=== PATIENT | female | born 1975 | race African-American/Black ===

== ENCOUNTER → 2018-01-16 10:44 | Outpatient (CLI) | payer OTHER, SELFPAY ==
--- NOTE | 2018-01-16 | DI.CT.S_ITS ---
PROCEDURE: CT SINUS SCREEN WO CON INDICATIONS: CHRONIC SINUSITIS TECHNIQUE: Noncontrast 3.0 mm axial images acquired from the frontal sinuses to the mid-sella, with coronal and sagittal reformats. For radiation dose reduction, the following was used: automated exposure control, adjustment of mA and/or kV according to patient size. COMPARISON: None. FINDINGS: Image quality: Excellent. The paranasal sinuses are normally aerated. No mucosal thickening identified in the paranasal sinuses. No air-fluid levels identified in the paranasal sinuses. The osteomeatal units are patent bilaterally. No bony thickening, bony remodeling or osseous erosive changes. Nasal septum is deviated to the right. No rishabh bullosa or paradoxical turbinates. 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 No frontal recess cells identified. Type II cribriform plate is noted. No variance in the ethmoid roof anatomy. The anterior ethmoid artery notches are protected bilaterally. The sphenoid pneumatization pattern is sellar incomplete. The sphenoid intersinus septum is midline. Type I optic canals noted. IMPRESSION: 1. No mucosal thickening or air-fluid levels. 2. Variant paranasal sinus anatomy as described above. Dictated by: Mary Chaidez MD, PhD on 01/16/2018 at 12:21 Approved by: Mary Chaidez MD, PhD on 01/16/2018 at 12:25
== END ==
PROVIDERS: Family Provider Family Medicine; PCP Family Medicine; Visit Provider Otolaryngology
DX: J32.9 Chronic sinusitis, unspecified (principal)
CPT/HCPCS: 70486

== ENCOUNTER → 2019-07-16 11:26 | Outpatient (CLI) | payer OTHER, SELFPAY ==
--- NOTE | 2019-07-16 | DI.RAD.S_ITS ---
PROCEDURE: XR ANKLE RT MIN 3V INDICATIONS: right ankle pain TECHNIQUE: 3 views of the ankle were acquired. COMPARISON: None. FINDINGS: Bones: No fractures or dislocations. Ankle mortise is normally aligned. No suspicious bony lesions. Soft tissues: No tibiotalar joint effusion. Achilles tendon appears normal. IMPRESSION: Normal for age, source of current persistent pain symptoms is not seen. Dictated by: Nikko Bowen M.D. on 07/16/2019 at 12:36 Approved by: Nikko Bowen M.D. on 07/16/2019 at 12:36
== END ==
PROVIDERS: PCP Family Medicine; Visit Provider Family Medicine
DX: M25.571 Pain in right ankle and joints of right foot (principal)
CPT/HCPCS: 73610

== ENCOUNTER → 2020-04-23 03:49 | Outpatient (CLI) | payer OTHER, SELFPAY | PROVIDERS: Referring Provider Internal Medicine; Visit Provider Internal Medicine | DX: Z23 Encounter for immunization (principal) | CPT/HCPCS: 90471; 90686 ==

== ENCOUNTER → 2020-06-30 12:00 | Outpatient (CLI) | payer OTHER, SELFPAY ==
[2020-06-30] MEDS: COVID-19 VACC(MODERNA-1)/PF 100 MCG/0.5 ML VIAL IM (12:06)
== END ==
PROVIDERS: Visit Provider Internal Medicine
DX: Z23 Encounter for immunization (principal)
CPT/HCPCS: 0011A; 91301

== ENCOUNTER → 2020-07-27 12:33 | Outpatient (CLI) | payer OTHER, SELFPAY ==
[2020-07-27] MEDS: COVID-19 VACC #2, MRNA(MOD) 100 MCG/0.5 ML VIAL IM (12:37)
== END ==
PROVIDERS: Visit Provider Internal Medicine
DX: Z23 Encounter for immunization (principal)
CPT/HCPCS: 0012A; 91301

== ENCOUNTER → 2022-04-03 14:10 | Outpatient (CLI) | payer OTHER, SELFPAY ==
--- NOTE | 2022-04-03 14:10 | DI.US.S_ITS ---
PROCEDURE: US PELVIC COMPLETE INDICATIONS: Heavy periods TECHNIQUE: Real-time scanning was performed of the pelvic organs, with image documentation. Additional endovaginal scanning was necessary due to incomplete visualization of the adnexal and endometrial structures by transabdominal scanning. COMPARISON: None. FINDINGS: Uterus: Uterus is anteverted and enlarged in size at 12.4 x 9 x 8.4 cm. The myometrium is heterogeneous. 6.9 x 9.9 x 8.4 cm intramural fibroid is seen in posterior myometrium near midline. The endometrium measures 6.4 mm combined thickness. No gross endometrial mass or fluid. Ovaries: The right ovary measures 1.8 x 3.0 x 1.4 cm, with a calculated ovarian volume of 3.9 cc. The left ovary is not visualized on this study. The right ovary has a normal sonographic appearance. Less than 12 follicles can be seen in right ovary. No adnexal masses are seen. Other: No pathologic free abdominal or pelvic fluid. IMPRESSION: 1. Enlarged uterus with bulky uterine fibroid as above. No gross endometrial mass or fluid. 2. Normal appearing right ovary. Left ovary is not visualized. No adnexal mass. We strive to produce accurate, complete, and clear reports of imaging services. To assist us in improving patient care, this report was composed using standard report templates and voice recognition software. Therefore, it may contain abnormal punctuation, insertions and/or omissions. Occasional wrong-word or sound-alike substitutions may occur. Though we review the report and make efforts to correct it, we do recommend that the report be read carefully in proper context to recognize any text inaccuracies. Dictated by: Wilson Suarez M.D. on 04/03/2022 at 16:41 Approved by: Wilson Suarez M.D. on 04/03/2022 at 16:45
== END ==
PROVIDERS: PCP Family Medicine; Referring Provider Obstetrics & Gynecology; Visit Provider Obstetrics & Gynecology
DX: N92.0 Excessive and frequent menstruation with regular cycle (principal); D25.1 Intramural leiomyoma of uterus; N85.2 Hypertrophy of uterus
CPT/HCPCS: 76830; 76856

== ENCOUNTER 2022-08-12 11:15 | Inpatient (IN) | payer OTHER, SELFPAY ==
[2022-08-08 10:57] VITALS: BMI 40.7
[2022-08-11] VITALS (13 sets, daily range): BP systolic 99–148; BP diastolic 63–91; PULSE 81–102; RESP 16–23; TEMP 36.1–36.9; O2SAT 95–99; BMI 40.7
--- NOTE | 2022-08-11 | PATH_ITS ---
[facility] Accession Number: [id number] No. of containers..01 Tissue . 01 Material submitted: . uterus - UTERUS, BILATERAL FALLOPIAN TUBES . 01 Diagnosis: Uterus and Fallopian Tubes, Supracervical Hysterectomy and Bilateral Salpingectomy: Endometrium: Early secretory. Myometrium: Multiple leiomyomata. Fallopian tubes: Benign paratubal cyst. V 08/17/2022 1624 Local . 01 Electronically signed: . Juliette Owens MD, Pathologist NPI- [id number] . 01 Gross description: . The specimen is received in formalin, labeled with the patient's name, , and uterus, bilateral fallopian tubes, and consists of a significantly fragmented uterus (448 g and aggregating to 17.5 x 16.9 x 7.8 cm), with two detached, fimbriated, unoriented fallopian tubes (6.8 x 0.7 cm and 3.3 x 0.6 cm, respectively), with no cervix or additional adnexa identified. The presumed endometrium is stein and velvety and averages 0.1 cm thick. The serosa is pink-stein and wrinkled with no hemorrhage or adhesion grossly identified. The myometrium is pink-stein and trabecular with multiple white, whorled, fragmented nodules with the largest intact nodule measuring up to 2.5 cm in greatest dimension. No hemorrhage or necrosis is identified. The longer fallopian tube has congested smooth serosa with no cystic structures identified. Sectioning reveals an unremarkable stellate lumen. The shorter fallopian tube has congested smooth serosa with a cystic structure measuring 0.7 cm in greatest dimension, filled with clear serous fluid. Sectioning reveals an unremarkable stellate lumen. [employer] sections are submitted as follows: A1-A2: [employer] endometrium. A3: Serosa. A4-A6: [employer]visor nodules. A7: Longer fallopian tube to include one-half of bisected fimbriae and cross sections. A8: [place] fallopian tube to include one-half of bisected fimbriae and cross sections. ([id number]) /FRR 08/12/2022 0919 Local . 01 Pathologist provided ICD-10: D25.1, N92.0 . 01 CPT . 286642 Specimen Comment: A courtesy copy of this report has been sent to [phone] Performed at: 01 [facility] [address] [place] [address], [place], [place] [id number] MD Javy Vásquez MD Phone: [phone]
[2022-08-11] MEDS: LACTATED RINGERS 1,000 ML 42 ML IV ×2 (09:45→11:06)
[2022-08-11 09:49] LABS: COVID19 -Nasal RAPID Negative (Negative)
[2022-08-11] MEDS: ACETAMINOPHEN IV 1,000 MG/100 ML VIAL 400 MG IV (09:51)
--- NOTE | 2022-08-11 10:08 | PM.PREOP ---
Pre-operative Note Interval Note History & Physical reviewed/Exam performed by Physician: Yes Changes to H&P: No H&P completed within 30 days and has changed as indicated here:: 07/26/22
[2022-08-11] MEDS: CEFAZOLIN 2 GM/100 ML PREMIX 100 ML IV (10:23)
--- NOTE | 2022-08-11 11:02 | SUR.OPER ---
Lithotomy on padded OR bed. [place] Pad Positioner under torso. Head on pillow, arms padded and tucked at sides. Legs secured in padded yellow fins stirrups. Pt positioned per direction and supervision of Dr Lujan.
[2022-08-11] MEDS: BUPIVACAINE 0.5% W/ EPI (PF) 30 ML VIAL INJ (11:07)
[2022-08-11] MEDS: ROPIVACAINE 0.2% PF 2 MG/ML 20ML AMP 20 ML INJ (11:08)
--- NOTE | 2022-08-11 13:46 | SUR.OPER ---
2\17\23 1230. Bloody urine found in hogan catheter at end of procedure. Dr Lujan notified. Pt re-intubated with LMA. Pt positioned in lithotomy with pink pad and yellowfins, bilateral arms padded and tucked at sides. Pt perineum prepped with hibiclens. Cystoscopy with Dr Leon started at 1302. Cystoscopy ended at 1319. Pt abdomen and perineum prepped with betadine. Cystotomy with Dr Lujan and Dr Leon started at 1338.
[2022-08-11] MEDS: METHYLENE BLUE 50 MG/10 ML VIAL 15 MG INJ (15:28)
--- NOTE | 2022-08-11 15:56 | PM.CN ---
History of Present Illness Consult details Date Patient Seen: 08/11/22 Time Patient Seen: 12:20 Chief complaint: OPB Reason for consult: Suspicion of bladder injury during supracervical laparoscopic hysterectomy Requesting provider: Aletha Lujan Narrative: This 46-year-old female had undergone a supracervical hysterectomy by Dr. Lujan. During the procedure there was no suspected incident or complication. However at the end of the procedure there was noted in the Ochoa bag blood and evidence of CO2 (the Ochoa bag was ?puffed up? (which raise suspicion for intraoperative bladder injury. I was called and asked to performed cystoscopy to evaluate. Cystoscopy was done will be dictated under separate cover. Meds Home Medications and Allergies Home Medications Medication Instructions Recorded Confirmed Type lorazepam 1 mg tablet (Ativan) 1 mg PO PRN PRN Anxiety ##0 07/14/16 08/08/22 History sertraline 50 mg tablet (Zoloft) 50 mg PO DAILY 04/10/22 08/08/22 History tacrolimus 0.1 % topical ointment 1 applic topical BID PRN As 04/10/22 08/08/22 History directed Allergies Allergy/AdvReac Type Severity Reaction Status Date / Time latex [LATEX] Allergy Unknown Verified 08/10/22 13:50 Penicillins Allergy Anaphylaxis Verified 08/11/22 09:08 Biologics Allergy Rash Uncoded 08/11/22 09:08 Exam Vital Signs (past 8 hours): - 08/11/22 09:26 Temperature 97.0 F L Pulse Rate 94 H Respiratory Rate 18 Blood Pressure 136/81 Pulse Oximetry 99 Oxygen Delivery Method Room Air Oxygen Delivery Method Room Air Narrative Exam Narrative: Patient is resting on the surgical table. And appears to be in no distress the Ochoa bag is inspected and did indeed have bloody urine. The urine in the tube however appeared to be clearing. As will be noted in the flexible cystoscopy note there did appear to be a perforation anteriorly consistent with laparoscopic trocar. This was on the anterior right bladder in proximity to the dome posteriorly on the left there was another injury that did not appear to be through and through and would be in position that would leave it extraperitoneal. Objective Labs Labs: Laboratory Results - last 24 hr 08/11/22 09:20 SARS-CoV-2 (PCR) Negative [facility] Medical History (Updated 08/11/22 @ 16:05 by Jaydon Leon MD) Bladder perforation, intraoperative Heavy menstrual period (~2016) History of urinary incontinence Insomnia, unspecified (~2002) Irregular menstrual cycle (~2016) Obstructive sleep apnea of adult (~03/2018) Painful menstrual periods (~2016) Rheumatoid arthritis Sjogrens syndrome Snoring (~2002) Social History marital status: details: brian Palafox, lives in [place] household members: spouse and family lives independently: Yes caregiver/support person: No housing: apartment occupational status: unemployed Tobacco & Substance Use Smoking Status: Former smoker alcohol intake: current substance use type: does not use Assessment & Plan Assessment and plan (1) Bladder perforation, intraoperative: Status: Acute Plan Assessment and plan: Patient with apparent traumatic bladder perforation appearing to be consistent with trocar. Also another bladder injury posteriorly that appears to be extraperitoneal. No other abnormality was noted in the bladder. Plan would be to move onto exploratory laparotomy per Dr. Lujan with any repair of the cystotomy done by myself. Time Spent With Patient Time with patient: less than 30 minutes Critical Care time: I spent a total of [] minutes of critical care time on this patient's care today; this time is exclusive of procedural time.
--- NOTE | 2022-08-11 16:06 | P.OP_ITS ---
Operative Date/Time/Diagnoses Date of procedure: 08/11/22 Time of procedure: 13:00 Pre-op diagnosis: Traumatic bladder injury Post-op diagnosis: same Procedure & Clinicians Procedure: Cystoscopy and open repair of traumatic bladder injury Same procedure as scheduled: No Indications: This 46-year-old female had undergone a laparoscopic supracervical hysterectomy. Was noted to have blood and evidence of gas in her Ochoa bag. I was asked to investigate via cystoscopy. At cystoscopy the bladder injury was noted and it was decided that exploratory laparotomy and then any repair of the bladder would be performed. The exploratory laparotomy will be dictated by Dr. Lujan under separate cover. Surgeon: Jaydon Leon Credit Report Checker: Aletha Lujan Anesthesia Type: General Operative Notes Findings: At cystoscopy: The urethral meatus was normal the urethra was normal along its length with normal mucosa. The ureteral orifices were normal position with clear efflux. The bladder mucosa in general exhibited some mild ecchymosis but nothing that would indicate malignant changes. In the right anterior bladder there was evidence of perforation with some apparent fat that would indicate a through and through injury it appeared to be about a cm in diameter and would be consistent with perhaps a laparoscopic trocar injury. In a line traveling posteriorly on the left there was also atraumatic of injury but that did not appear to be through and through in an a space that would be extraperitoneal. No other abnormalities were noted within the bladder or at cystoscopy. Intraoperatively: With the dome of the bladder expose the bladder was filled and ready efflux of saline was noted. The perforation was identified. This will be repaired as noted below the bladder after this repair was then filled with saline there appeared to be no leak the bladder was drained and then the bladder was filled with 300 cc of methylene blue containing fluid. There was no evidence of leak of the methylene blue containing fluid. There was no leak from the repair with either of the fillings. Specimen(s): none sent Procedure in detail: Procedure in detail: With the patient asleep and Dr. Lujan with my assistance having open the patient and performed exploratory laparotomy Bookwalter retractor was in place in the bladder was exposed. Ochoa catheter was then put in place with the vagina having been prepped. The bladder was then filled with sterile saline and in the dome on the right the leak was identified. The edges of the mucosa them were grasped with an Allis clamp and repair performed in the following fashion. The mucosa was then reapproximated with a running 3-0 chromic. The detrusor was then approximated with a running 2-0 Vicryl and the overlying fat and peritoneum were imbricated over this closure with a 2-0 running Vicryl. Thus the bladder was closed in 3 layers. The bladder was then filled with 300 cc of sterile water and the that repair was watertight. The bladder was then drained and to investigate for any further leak and to demonstrate again no leak at the repair the bladder was filled with 300 cc plus of methylene blue containing saline. There was no leak and no evidence of blue fluid in the peritoneum the surgical field. This is been suspected was conf irmed that the posterior injury in the bladder was extraperitoneal. At this point the peritoneum and perivesical fat were reapproximated over the detrusor with a running 2-0 Vicryl. The patient then went on to closure by Dr. Lujan. The exploratory laparotomy and other portions of the surgery will be dictated by Dr. Lujan. Recommendations for continuing Ochoa catheter cystogram at approximately 4 weeks and antibiotics were given. I Will be available should there be other urologic needs. There were no complications during this portion of the procedure. Complications: none Post-operative Plan for aftercare: Per Dr. Lujan. Recommend continued Ochoa catheter drainage, cystogram at approximately 4 weeks with follow-up in my office.
--- NOTE | 2022-08-11 16:32 | SUR.OPER ---
Initial procedure with Dr Lujan finished at 1228. Bloody urine in hogan catheter observed prior to leaving the operating room. Dr Lujan notified. Pt re positioned into lithotomy with bilateral arms padded and tucked. Pt perineum prepped with hibiclens. Cystoscopy with Dr Leon started at 1302. Cystoscopy finished at 1319. Pt abdomen and perineum prepped with betadine. Exploratory laparotomy and cystotomy repair started at 1338.
--- NOTE | 2022-08-11 16:47 | P.OP_ITS ---
Operative Date/Time/Diagnoses Date of procedure: 08/11/22 Time of procedure: 16:47 Pre-op diagnosis: Menorrhagia Enlarged fibroid uterus Post-op diagnosis: same Procedure & Clinicians Procedure: Procedures Operation Date: 08/11/22 10:15 Actual Procedure Side Surgeon p Laparoscopic Supracervical Hysterectomy w/ bilateral salpingectomy Bilateral Aletha Lujan MD s Cystoscopy, exploratory laparotomy, closure of traumatic cystotomy Not Applicable Jaydon Leon MD Indications: Menorrhagia Fibroid uterus Inadvertent cystotomy Surgeon: Aletha Lujan Public Address Technician: Erick Desai Anesthesia Type: General and Local Operative Notes Findings: 12 week size multifibroid uterus Normal ovaries Normal tubes Cystotomy at dome of the bladder Normal gallbladder and liver Normal appendix Small cystotomy in the dome of the bladder Closure Type: primary Specimen(s): left tube, right tube and uterus Applied: catheter (Silicone, to continuous drainage) Estimated blood loss (mL): 50 Blood products transfused: none Procedure in detail: The patient was taken to the operating room where she was placed in the dorsal supine position. After adequate general endotracheal anesthesia was achieved, s he was placed in the dorsal lithotomy position, and prepped and draped in the usual sterile fashion. A time-out was performed. A bivalve speculum was placed into the vagina and the anterior lip of the cervix was grasped with a single- tooth tenaculum. The cervical os was sequentially dilated until the Zumi uterine manipulator could pass easily into the endometrial cavity. The single- tooth tenaculum was removed from the anterior lip of the cervix. The bivalve speculum was removed from the vagina. Attention was then turned to the abdomen where 6 cc of 0.5% Marcaine with epinephrine were injected in the umbilical fold. A 5 mm incision was made. A long Veress needle was placed into the peritoneal cavity, and its placement confirmed by aspiration and drop test. The abdominal cavity was insufflated with 4 L of CO2. The Veress needle was removed, and a long 5 mm trocar was placed without difficulty. Two other 5 mm incisions were made 4 cm lateral to the midline at the level of the umbilicus after 6 cc of 0.5% Marcaine with epinephrine were injected. Two long 5 mm trocars were placed under direct visualization. A probe was used to move the bowel out of the way. The uterus was examined and was found to be 12 week size with fibroids both intramural and subserosal. The ovaries were normal. The tubes were normal. The liver and gallbladder were examined and were found to be normal. The appendix was normal. The right tube was grasped with an atraumatic grasper. Using the power seal, the mesosalpinx on the right side was cauterized and cut all the way down to the cornua of the uterus. The cornua of the uterus was then grasped with an atraumatic grasper. The utero-ovarian vessels were cauterized and cut. The round ligament and broad ligament were cauterized and cut. The bladder flap was created using the power seal mcfp across with cautery and cut. All of this was repeated on the patient's left side. The Zumi uterine manipulator was removed from the uterus. A moistened sponge stick was placed into the vagina. The Tamika loop was placed at the junction of the uterus and cervix, 2 cm above the uterosacral ligaments. The uterus was amputated from the cervix. There was minimal bleeding noted from the left edge of the cervix and this was cauterized with the spoon cautery. The endocervical canal was extensively cauterized with the spoon cautery. The pelvis was copiously irrigated with warm normal saline. There was no bleeding noted. 6 cc of 0.5% Marcaine with epinephrine were injected 2 cm above the pubic symphysis. A 2 cm incision was made. The 12 mm trocar was placed under direct visualization. The large endobag was placed through the suprapubic trocar and the uterus and tubes were placed into the bag. The trocar was removed and the edges of the bag were brought up through the skin. An Hernando was placed into the bag. Morcellated in approximately 35 pieces. This was sent off to pathology. The endobag and Hernando were removed from the peritoneal cavity. The fascia on the suprapubic incision was closed with 0 Vicryl in a running fashion. The abdomen was re- insufflated and the pelvis was examined. There was no bleeding noted. The pelvis was irrigated with warm normal saline. The instruments were removed from the abdomen. The CO2 was allowed to escape. Two simple interrupted sutures with 3-0 Vicryl were placed to reapproximate the subcutaneous layer. The skin was closed on all of the incisions with 4-0 Monocryl in a subcuticular fashion. Steri-Strips and Allevyn dressings were placed. The moistened sponge stick was removed from the vagina. Sponge, lap, and instrument counts were correct x2. The patient tolerated the procedure well. Prior to the patient leaving the operating room blood was noted in the Ochoa bag and some air. Urology was consulted and the cystoscopy is dictated as a separate procedure. A decision was made to proceed with an exploratory laparotomy and repair of an inadvertent cystotomy. The patient was placed again in the dorsal lithotomy position and prepped and draped in the usual sterile fashion. The stitches were removed from the suprapubic incision both on the skin and subcutaneous layer. The incision was extended to 8 cm and carried through to the underlying layer of fascia. The fascial incision was extended bilaterally. The superior aspect of the fascial incision was grasped with the Jazz clamps, elevated, and the underlying rectus muscles dissected off sharply and bluntly. In a similar fashion the lower edges of the fascia were grasped with the Jazz clamps, elevated, and the underlying rectus muscles dissected off sharply and bluntly. The rectus muscles were in the midline. The peritoneum was identified, grasped between 2 hemostats, and entered sharply with the Metzenbaum scissors. This incision was extended bluntly. The Bookwalter retractor system was placed and the bowel packed away with moist lap sponges and a retractor. There was a small area near 1 of the epiploic appendices that had some oozing. General surgery was consulted and felt that there was no enterotomy. A superficial closure was done with silk sutures and this is dictated as a separate procedure. Once good visualization of the bladder was obtained. There was found to be a small cystotomy in the dome of the bladder. The closure of the cystotomy is dictated by Dr. Leon as a separate procedure. Once adequate closure of the cystotomy was visualized. The pelvis and bladder were examined and were found to be hemostatic. Copious irrigation was perform ed. The retractors and Bookwalter system were removed from the incision. The peritoneum was grasped with hemostats. Peritoneum was closed with 2-0 Vicryl in a running fashion. The fascia was reapproximated using 0 Vicryl in a running fashion. The subcutaneous layer was copiously irrigated with warm normal saline. There was no bleeding noted. Five simple interrupted sutures with 3-0 Vicryl were placed in the subcutaneous layer to reapproximate. The skin was closed with 4-0 Monocryl in a subcuticular fashion. Steri-Strips, Telfa, and Medipore tape were placed. Sponge, lap, and instrument counts were correct x2. The patient tolerated the procedure well and was taken to PACU in stable condition. Complications: none Post-operative Condition: stable Disposition: PACU Plan for aftercare: To Acute Care after Recovery
[2022-08-11] MEDS: OXYCODONE IR 5 MG TABLET PO (17:08)
--- NOTE | 2022-08-11 17:26 | SUR.PHASEI ---
to 218 with belongings. pt tolerated.
[2022-08-11 17:58] LABS: Add Manual Diff / Slide Review NO; Basophils Absolute Auto 0 /uL (0-100); Basophils Percent Auto 0.2 % (0-2); Eosinophils Absolute Auto 0 /uL (0-450); Hemoglobin 12.4 g/dL (12.0-16.0); Lymphocytes Absolute Auto 800 /uL (1100-4500); Lymphocytes Percent Auto 5.2 % (25-40); Mean Corpuscular HGB Conc 32.6 % (30-36); Mean Corpuscular Hemoglobin 27.6 PG (26-34); Mean Corpuscular Volume 84.7 fL (80-100); Monocytes Absolute Auto 800 /uL (0-900); Monocytes Percent Auto 5.5 % (3-14); Neutrophils Absolute Auto 12800 /uL (1500-7000); Neutrophils Percent Auto 89.1 % (50-75); Platelet Count 255 X10^3/uL (150-400); Red Blood Cell Count 4.49 X10^6/uL (4.0-5.2); Red Cell Distribution Width 16.1 % (11.6-14.8); White Blood Cell Count 14.4 X10^3/uL (4.5-11.0)
[2022-08-11] MEDS: levoFLOXacin 500 MG/100 ML PIGGYBACK 100 MG IV (18:40)
[2022-08-11] MEDS: ACETAMINOPHEN 325 MG TABLET 650 MG PO (18:40)
[2022-08-11] MEDS: OXYCODONE IR 10 MG TABLET PO (18:40)
[2022-08-11] MEDS: LACTATED RINGERS 1,000 ML 100 ML IV (18:40)
[2022-08-11] MEDS: KETOROLAC 30 MG/ML VIAL IV (20:58)
[2022-08-11] MEDS: MORPHINE 2 MG/ML INJ IV ×2 (20:59→22:39)
[2022-08-11] MEDS: metroNIDAZOLE 500 MG/100 ML PIGGYBACK 100 MG IV (21:00)
[2022-08-11] MEDS: DOCUSATE 100 MG CAPSULE 200 MG PO (22:41)
[2022-08-12] MEDS: ACETAMINOPHEN 325 MG TABLET 650 MG PO ×4 (00:59→18:41)
[2022-08-12] MEDS: MORPHINE 4 MG/ML INJ IV ×2 (01:03→13:37)
[2022-08-12 01:22] VITALS: BP 117/73; PULSE 76; RESP 18; TEMP 36.3; O2SAT 98
[2022-08-12] MEDS: LORazepam 1 MG TABLET PO (03:00)
[2022-08-12] MEDS: KETOROLAC 30 MG/ML VIAL IV ×3 (03:00→16:10)
[2022-08-12] MEDS: metroNIDAZOLE 500 MG/100 ML PIGGYBACK 100 MG IV ×3 (03:53→18:41)
[2022-08-12 04:22] VITALS: BP 114/61; PULSE 67; RESP 18; TEMP 36.1; O2SAT 98
[2022-08-12] MEDS: OXYCODONE IR 5 MG TABLET 10 MG PO ×2 (06:56→20:46)
[2022-08-12 08:00] VITALS: BP 125/72; PULSE 65; RESP 16; TEMP 36.6; O2SAT 100
[2022-08-12] MEDS: LACTATED RINGERS 1,000 ML 100 ML IV (08:48)
[2022-08-12 08:59] LABS: BUN Creatinine Ratio 14.7 (6-22); Blood Urea Nitrogen 10 mg/dL (7-17); Calcium 8.4 mg/dL (8.4-10.2); Carbon Dioxide 28 mmol/L (22-32); Chloride 98 mmol/L (98-107); Estimated Glomerular Filt Rate > 60 mL/min (>60); Glucose 99 mg/dL (70-100); HEMOLYSIS 15 (0-50); Potassium 3.9 mmol/L (3.4-5.1); Sodium 131 mmol/L (137-145)
[2022-08-12] MEDS: DOCUSATE 100 MG CAPSULE 200 MG PO ×2 (09:18→21:12)
[2022-08-12] MEDS: SERTRALINE 50 MG TABLET PO (09:18)
--- NOTE | 2022-08-12 10:59 | CM.DANOTE ---
Initial DCP Assessment Note Pt is a 46 yo female, resident of [place], POD 1 from Cystoscopy and open repair of traumatic bladder injury (during recent supracervical laparoscopic hysterectomy). Dr Le peralta today, states no needs from this CM team; anticipates patient will discharge home w/supportive spouse and family tomorrow PCP: Magdiel Ware Payer: Maegan JASSO Met w/patient and her sister Magen at bedside, introduced role. Patient denies DC needs but does ask for counseling resources. Discussed [employer] as the most up to date and robust resource for finding providers that accept patient's insurance. Patient states appreciation. No barriers identified at this time to patient's safe discharge home w/family to assist; close outpatient f/u recommended. RAY Urena Discharge Planning/Care Management CM Discharge Assessment Start: 08/12/22 10:45 Freq: Status: Active Protocol: Document 08/12/22 10:46 KELSI (Rec: 08/12/22 10:59 KELSI [id number]) Discharge Planning Assessment Assigned Branch Administrator RAY Joyce DPOA/Assigned Designee Name Javy Ley, spouse Contact Information [phone] Advance Directives? No Advance Directives on File No History Provided By Patient,Medical Record Prior Living Arrangements Apartment/Condo Household Members spouse,family Type of transporation used prior to Drives own vehicle admit Independent with ADL's Yes Is patient alert and oriented? Yes Barriers to Discharge No Comment Anticipate discharge home w/ assist from spouse and sister once medically cleared, likely Sunday08.13.22 Discharge Plan Home Transportation Arrangement Family Referrals Initiated None needed Whiteboard Updated in Patient Room with Yes name and ext. # of Branch Administrator
--- NOTE | 2022-08-12 13:06 | PM.PNPO.1 ---
Subjective Subjective Date Patient Seen: 08/12/22 Time Patient Seen: 10:15 Interval history: Postop day #1 status post laparoscopic supracervical hysterectomy and exploratory laparotomy with repair of inadvertent cystotomy. Patient did well overnight. Pain is well controlled. No nausea or vomiting. She has tolerated a diet. She did get out of bed and stand at the bedside. Went over again the details of what happened in surgery and the procedures that were performed. Urine is clear and adequate. Exam Vital Signs (past 8 hours): - 08/12/22 08:00 Temperature 97.8 F Pulse Rate 65 Respiratory Rate 16 Blood Pressure 125/72 Pulse Oximetry 100 Oxygen Flow Rate 0 Oxygen Delivery Method Room Air Oxygen Flow Rate 0 Narrative Exam Narrative: Generally: Patient is sitting up in bed, no acute distress Abdomen: Soft, appropriately tender. Incisions: Laparoscopy incisions are clean dry and intact with Allevyn dressings. The Pfannenstiel incision is clean dry and intact with Medipore tape. Extremities: SCDs in place Objective Labs 08/11/22 17:50 08/12/22 08:15 Labs: Laboratory Results - last 24 hr 08/11/22 08/12/22 17:50 08:15 WBC 14.4 H RBC 4.49 Hgb 12.4 Hct 38.0 MCV 84.7 MCH 27.6 MCHC 32.6 RDW 16.1 H Plt Count 255 Neut % (Auto) 89.1 H Lymph % (Auto) 5.2 L [place] % (Auto) 5.5 Eos % (Auto) 0.0 L Baso % (Auto) 0.2 Neut # (Auto) 38023 H Lymph # (Auto) 800 L [place] # (Auto) 800 Eos # (Auto) 0 Baso # (Auto) 0 Sodium 131 L Potassium 3.9 Chloride 98 Carbon Dioxide 28 BUN 10 Creatinine 0.68 Estimated GFR > 60 BUN/Creatinine Ratio 14.7 Glucose 99 Calcium 8.4 PENDING SALE TO [facility] Medical History (Updated 08/11/22 @ 16:05 by Jaydon Leon MD) Bladder perforation, intraoperative Heavy menstrual period (~2016) History of urinary incontinence Insomnia, unspecified (~2002) Irregular menstrual cycle (~2016) Obstructive sleep apnea of adult (~03/2018) Painful menstrual periods (~2016) Rheumatoid arthritis Sjogrens syndrome Snoring (~2002) Social History (Reviewed 02/28/19 @ 18:08 by CARLITOS Anaya marital status: details: brian Palafox, lives in [place] household members: spouse and family lives independently: Yes caregiver/support person: No housing: apartment occupational status: unemployed Smoking Status: Former smoker alcohol intake: current substance use type: does not use Assessment & Plan Post-op Postoperative Procedures: Procedures Operation Date: 08/11/22 10:15 Actual Procedure Side Surgeon p Laparoscopic Supracervical Hysterectomy w/ bilateral salpingectomy Bilateral Aletha Lujan MD s Cystoscopy, exploratory laparotomy, closure of traumatic cystotomy Not Applicable Jaydon Leon MD Postoperative day: 1 Postoperative status: doing well Postoperative plan narrative: Continue Ochoa catheter Ambulate in hallway Continue IV antibiotics Cepacol lozenges for throat soreness Abdominal binder Anticipate discharge August 13, 2022 Time Spent With Patient Time with patient: 15-24 minutes Quality VTE Deep Vein Thrombosis/Pulmonary Embolism Present on Admission: No
[2022-08-12 16:15] VITALS: BP 118/67; PULSE 75; RESP 16; TEMP 36.7; O2SAT 98
--- NOTE | 2022-08-12 16:21 | DI.US.S_ITS ---
PROCEDURE: US PERIPH VENOUS LOW EXTREM RT INDICATIONS: Rt calf swelling TECHNIQUE: Real-time imaging, as well as color and pulse Doppler interrogation, were performed of the lower extremity deep veins from the inguinal ligament to the popliteal fossa. COMPARISON: None. FINDINGS: The common femoral, femoral and popliteal veins are normally compressible, and free of intraluminal thrombus. Color and pulse Doppler demonstrate normal phasic intraluminal flow. There is normal augmentation response to distal compression maneuver. IMPRESSION: No DVT found. Source reported right calf swelling is not identified. Dictated by: Nikko Bowen M.D. on 08/12/2022 at 20:18 Approved by: Nikko Bowen M.D. on 08/12/2022 at 20:19
[2022-08-12] MEDS: levoFLOXacin 500 MG/100 ML PIGGYBACK 100 MG IV (17:32)
[2022-08-12 20:05] VITALS: BP 129/73; PULSE 89; RESP 17; TEMP 36.1; O2SAT 98
--- NOTE | 2022-08-12 20:24 | PM.OP.1 ---
Operative Date/Time/Diagnoses Date of procedure: 08/12/22 Time of procedure: 20:25
--- NOTE | 2022-08-12 20:27 | PM.CALLCOV.1 ---
Call Coverage Note Note Date of Patient Contact: 08/11/22 Narrative of Care Provided: Patient is a 46-year-old woman who underwent a laparoscopic hysterectomy 08/11/2022. Intraoperatively it was noted that there was blood in the Ochoa catheter and she was suspected of having a traumatic bladder injury. She underwent an exploratory laparotomy and repair of the bladder injury. During the course of the operation an abrasion to a portion of the descending colon was noted and I was asked to evaluate the patient intraoperatively. Examination of the distal colon demonstrated a 1 cm superficial abrasion to the colon. The area was carefully examined both proximal and distal and there was no evidence of penetrating colonic injury. Palpation of the colon demonstrated no expression of succus or blood. A few of the surrounding epiplocic appendages were placed over abrasion and secured in position using 3-0 silk suture.
[2022-08-13] MEDS: OXYCODONE IR 5 MG TABLET 10 MG PO ×2 (00:38→13:21)
[2022-08-13] MEDS: ACETAMINOPHEN 325 MG TABLET 650 MG PO ×3 (00:38→13:18)
[2022-08-13 00:40] VITALS: BP 125/68; PULSE 74; RESP 17; TEMP 36.8; O2SAT 96
[2022-08-13] MEDS: LORazepam 1 MG TABLET PO (00:43)
[2022-08-13] MEDS: OXYCODONE IR 10 MG TABLET PO (07:09)
--- NOTE | 2022-08-13 07:41 | PC.NURSE ---
Patient c/o sharp pain to LLQ incision site when she got up to go to the bathroom and had a BM. Michelleg C/D/I. Patient returned to bed afterwards and slept for the next few hours. Patient denies any further tingling/numbness/pain to leg.
[2022-08-13 08:00] VITALS: BP 119/61; PULSE 75; RESP 16; TEMP 36.2; O2SAT 94
[2022-08-13] MEDS: SERTRALINE 50 MG TABLET PO (11:00)
[2022-08-13] MEDS: DOCUSATE 100 MG CAPSULE 200 MG PO (11:00)
--- NOTE | 2022-08-13 11:24 | PM.DS.1 ---
History of Present Illness History of Present Illness Date Patient Seen: 08/13/22 Time Patient Seen: 10:20 Chief complaint: OPB Narrative: Patient is a 46-year-old 0 postop day # 2 status post laparoscopic supracervical hysterectomy with inadvertent cystotomy requiring exploratory laparotomy with closure of cystotomy. Patient has had a bowel movement. She is tolerating a diet. No nausea or vomiting. Pain is well controlled. She is ambulating without assistance. Urine is clear. Discharge Providers Provider Date of admission: 08/11/22 17:02 Discharge Date: 08/13/22 Primary care physician: Magdiel Ware MD Consults: Urology Discharge provider: Aletha Lujan MD Summary Hospital Course Discharge Diagnosis: Enlarged fibroid uterus Menorrhagia Laparoscopic supracervical hysterectomy with bilateral salpingectomy Inadvertent cystotomy Exploratory laparotomy with closure of cystotomy Hospital Course: Patient is a 46-year-old 0 who presented on August 11, 2022 for a scheduled laparoscopic supracervical hysterectomy with bilateral salpingectomy secondary to enlarged fibroid uterus and menorrhagia. She underwent this procedure without complication. While patient was being extubated in the operating room, blood was noted in the Ochoa bag. Dr. Leon, urologist, was consulted and a cystoscopy was performed. There was an injury in the dome of the bladder. An exploratory laparotomy was performed and the cystotomy was repaired by Dr. Leon. A silicone Ochoa catheter was kept in place. Her postoperative course was unremarkable. On postop day #2 she had a bowel movement. She was tolerating a diet. She was ambulating without assistance. She had no nausea and vomiting. Her pain was well controlled. She is discharged home with a silicone Ochoa in place. Leg bag teaching done prior to discharge. Status at Discharge Cognitive/behavioral status at discharge: oriented Functional status at discharge: independent ambulation Overall status at discharge: patient is progressing back to baseline Time Spent with Patient Time spent: Greater than 30 minutes Exam Vital Signs (past 8 hours): - 08/13/22 08:00 Temperature 97.1 F L Pulse Rate 75 Respiratory Rate 16 Blood Pressure 119/61 Pulse Oximetry 94 Oxygen Flow Rate 0 Oxygen Delivery Method Room Air Oxygen Flow Rate 0 Narrative Exam Narrative: Generally: Patient walking around in room, no acute distress Lungs: Clear to auscultation bilaterally Cardiovascular: Regular rate and rhythm Abdomen: Soft, good bowel sounds. Incisions: Laparoscopy incisions clean dry and intact with Allevyn dressings. Laparotomy incision clean dry and intact with Aquacel dressing. Extremities: Trace edema. Negative Homans. Objective Labs 08/11/22 17:50 08/12/22 08:15 [facility] Medical History (Updated 08/11/22 @ 16:05 by Jaydon Leon MD) Bladder perforation, intraoperative Heavy menstrual period (~2016) History of urinary incontinence Insomnia, unspecified (~2002) Irregular menstrual cycle (~2016) Obstructive sleep apnea of adult (~03/2018) Painful menstrual periods (~2016) Rheumatoid arthritis Sjogrens syndrome Snoring (~2002) Social History marital status: details: brian Palafox, lives in [place] household members: spouse and family lives independently: Yes caregiver/support person: No housing: apartment occupational status: unemployed Smoking Status: Former smoker alcohol intake: current substance use type: does not use Discharge Assessment & Plan Assessment and Plan Assessment: Postop day # 2 status post laparoscopic supracervical hysterectomy with bilateral salpingectomy, exploratory laparotomy with repair of inadvertent cystotomy. Patient doing very well Clear yellow urine Bowel function has returned No nausea or vomiting Independent ambulation Good pain control Plan of Treatment: Discharge to home Follow-up in 4 days for Aquacel dressing removal Ochoa catheter to remain in place 81 mg aspirin per day Compression stockings Leg bag teaching Bactrim DS once a day Discharge Plan Discharge Plan Patient Disposition: Home Provider Discharge Comment: Call with fever, chills, redness or drainage around the incision, or bleeding vaginally more than spotting Call with any pain or swelling in the calf, or red streak up the back of the calf Call with any blood in the catheter tubing or bag Tylenol 650 mg every 6 hours for the first few days, then every 6 hours as needed Ibuprofen 600 mg every 6 hours for the first few days, then every 6 hours as needed Stool softener until bowels returned to normal Drink plenty of fluids Elevate legs 81mg Aspirin daily for 6 weeks Compression hose Ambulate frequently Discharge orders & Medications Prescriptions: New oxycodone 5 mg tablet 5 mg PO Q4H PRN (Reason: pain) Qty: 30 0RF sulfamethoxazole-trimethoprim [Bactrim] 400-80 mg tablet 1 tab PO DAILY Qty: 30 0RF Continued lorazepam [Ativan] 1 MG tablet 1 mg PO PRN PRN (Reason: Anxiety) Qty: 0 sertraline [Zoloft] 50 mg tablet 50 mg PO DAILY tacrolimus 0.1 % ointment 1 applic topical BID PRN (Reason: As directed) Follow up/Referrals: Aletha Lujan MD [Physician] - (My office will call on Sunday to set up Aquacel removal on ) Diet/Activity/Treatments Diet: Regular Activity: No heavy lifting, nothing more than a gallon of milk Skin/Wound/Dressing Care Report to your healthcare provider any signs of infection, such as:: chills, fever, increased pain, unusual drainage and unusual redness Dressing: Remove outer pink dressings with attached guaze tomorrow after a shower Leave lower brown dressing in place until visit this week Visit Report/Discharge Packet Instructions: Deep Vein Thrombosis, DI for Cystoscopy, DI for Hysterectomy, DI for Laparoscopy, DI for Prescription Opioid Use Stand Alone Forms: Patient Portal/API, Stroke Signs & Symptoms, Surgery Discharge Discharge Data Primary Care Provider: Magdiel Ware VTE Deep Vein Thrombosis/Pulmonary Embolism Present on Admission: No
[2022-08-13] MEDS: TRIMETH/SULFA 160/800 (DS) TABLET 1 TAB PO (13:18)
[2022-08-14 14:13] LABS: Protein C-Functional 143 % (73-180); Protein S-Functional 65 % (63-140)
== END 2022-08-13 13:43 | disposition home or self-care (01) | DRG 909 ==
LOC: AC 12:24
PROVIDERS: Urology; Admitting Provider Obstetrics & Gynecology; PCP Family Medicine; Referring Provider Obstetrics & Gynecology; Visit Provider Obstetrics & Gynecology
PROC: 0UT94ZL Resection of Uterus, Supracervical, Percutaneous Endoscopic Approach (ICD-10-PCS; principal; 2022-08-11 10:15)
PROC: 0TQB8ZZ Repair Bladder, Via Natural or Artificial Opening Endoscopic (ICD-10-PCS; 2022-08-11 10:15)
DX: N99.71 Accidental puncture and laceration of a genitourinary system organ or structure during a genitourinary system procedure (principal); D25.1 Intramural leiomyoma of uterus; N92.0 Excessive and frequent menstruation with regular cycle; M79.604 Pain in right leg; Z20.822 Contact with and (suspected) exposure to COVID-19
CPT/HCPCS: 36415; 51860; 58542; 80048; 81241; 85025; 85303; 85306; 87635; 93971; 99232; C9803; J0131; J0330; J0690; J1100; J1885; J1956; J2250; J2270; J2405; J2704; J2795; J3010; Q9968

== ENCOUNTER 2022-08-16 16:59 | Emergency (ER) | payer OTHER, SELFPAY ==
[2022-08-11 17:41] VITALS: BMI 40.7
[2022-08-16 17:06] VITALS: BP 131/71; PULSE 75; RESP 18; TEMP 36.6; O2SAT 98; BMI 41.6
--- NOTE | 2022-08-16 19:30 | ED.FEMALEGU ---
HPI - Female Genitourinary <Aletha Sandoval, [facility] - Last Filed: 08/17/22 12:12> General Chief complaint: Urogenital-Female Stated complaint: Thinks blood in urine Time Seen by Provider: 08/16/22 17:38 Source: patient Mode of arrival: Wheelchair History of Present Illness HPI Narrative: This is a 46-year-old with history of hysterectomy [address] Lujan with bladder laceration intraoperatively, rheumatoid arthritis, Sjogren's syndrome, JOHNIE who presents to the emergency department with Ochoa catheter in place complaining of suprapubic pain, bilateral flank pain, chills, nausea without vomiting, without fever. Patient has been on Bactrim since before her surgery. States that she has chills, denies vaginal bleeding or abnormal vaginal discharge but states that she is had blood when she wipes a few times. She denies urethral pain but endorses flank pain, inguinal pain and suprapubic pain and pain underneath her incision. Dr. Lujan called and would like to be involved in plan of care for this patient. Per Dr. Lujan, patient had a bladder laceration intraoperatively and Dr. Leon from Urology performed a three-way closure of her bladder. And has been involved in her care. Patient states that she did not take her Bactrim today but she has been on this since her procedure. Related Data Home Medications Medication Instructions Recorded Confirmed lorazepam 1 mg tablet (Ativan) 1 mg PO PRN PRN Anxiety ##0 07/14/16 08/08/22 sertraline 50 mg tablet (Zoloft) 50 mg PO DAILY 04/10/22 08/08/22 tacrolimus 0.1 % topical ointment 1 applic topical BID PRN As 04/10/22 08/08/22 directed Previous Rx's Medication Instructions Recorded sulfamethoxazole 400 1 tab PO DAILY #30 tabs 08/13/22 mg-trimethoprim 80 mg tablet (Bactrim) hyoscyamine sulfate 0.125 mg 0.125 mg PO QID PRN bladder spasms 08/16/22 tablet (Levsin) #14 tabs phenazopyridine 200 mg tablet 200 mg PO TID PRN pain #20 tabs 08/16/22 (Pyridium) oxycodone 5 mg tablet 5 mg PO Q4H PRN pain #30 tabs 08/17/22 Allergies Allergy/AdvReac Type Severity Reaction Status Date / Time latex [LATEX] Allergy Unknown Verified 08/10/22 13:50 Penicillins Allergy Anaphylaxis Verified 08/11/22 09:08 Biologics Allergy Rash Uncoded 08/11/22 09:08 Review of Systems <TARUN Young - Last Filed: 08/17/22 12:12> Review of Systems ROS Unobtainable: All systems reviewed & are unremarkable except as noted in HPI and below Patient History <TARUN Young - Last Filed: 08/17/22 12:12> Medical History Bladder perforation, intraoperative Heavy menstrual period (~2016) History of urinary incontinence Insomnia, unspecified (~2002) Irregular menstrual cycle (~2016) Obstructive sleep apnea of adult (~03/2018) Painful menstrual periods (~2016) Rheumatoid arthritis Sjogrens syndrome Snoring (~2002) alcohol intake frequency: a few times a week Substance Use Type: does not use Exam <TARUN Young - Last Filed: 08/17/22 12:12> Narrative Exam Narrative: Reviewed vitals signs and nursing notes. General: cooperative, comfortable, in acute distress, patient has chills, afebrile but is in pain, well groomed HEENT: symmetrical facial expressions, moist mucous membranes, EOMI, Cardiovascular: regular rate and rhythm, no peripheral edema, warm extremities Respiratory: normal effort, able to speak in complete sentences, without wheezing, stridor, or abnormal breath sounds. No retractions or tachypnea. GI: abdomen soft, nontender to palpation, nondistended, without masses, rebound tenderness or exquisite tenderness with exam. Mild CVA tenderness bilaterally no leaking from urethra, suprapubic and bilateral inguinal and flank pain, no abnormal vaginal discharge on exam, tenderness is suprapubic and just above her transverse pelvic incision MSK: moves all extremities, neurovascularly intact, no weakness, normal tone, without peripheral edema bilaterally Skin: brisk capillary refill, without pallor or erythema Neuro: normal speech and cognition, A&O x3, ambulatory, clear speech Psych: mental status is grossly normal, congruent mood, normal affect, pleasant and cooperative Initial Vital Signs Initial Vital Signs: Vital Signs Temperature 98 F 08/16/22 17:06 Pulse Rate 75 08/16/22 17:06 Respiratory Rate 18 08/16/22 17:06 Blood Pressure 131/71 08/16/22 17:06 Pulse Oximetry 98 08/16/22 17:06 Oxygen Delivery Method 08/16/22 17:06 <Renaldo Briones DO - Last Filed: 08/17/22 01:07> Initial Vital Signs Initial Vital Signs: Vital Signs Temperature 98 F 08/16/22 17:06 Pulse Rate 75 08/16/22 17:06 Respiratory Rate 18 08/16/22 17:06 Blood Pressure 131/71 08/16/22 17:06 Pulse Oximetry 98 08/16/22 17:06 Oxygen Delivery Method 08/16/22 17:06 Course <TARUN Young - Last Filed: 08/17/22 12:12> Orders Ordered: Discontinued Medications Ceftriaxone Sodium (Ceftriaxone 2,000 Mg Vial) 1,000 mg IM NOW ONE Stop: 08/16/22 19:29 Last Admin: 08/16/22 21:41 Dose: Not Given Documented By: ROOPA Hyoscyamine (Hyoscyamine 0.125 Mg Tablet) 0.125 mg PO NOW ONE Stop: 08/16/22 21:15 Last Admin: 08/16/22 21:40 Dose: 0.125 mg Documented By: ROOPA Ketorolac Tromethamine (Ketorolac 30 Mg/Ml Vial) 15 mg IM NOW ONE Stop: 08/16/22 19:29 Ketorolac Tromethamine (Ketorolac 30 Mg/Ml Vial) 15 mg IV NOW ONE Stop: 08/16/22 20:16 Last Admin: 08/16/22 20:27 Dose: 15 mg Documented By: ROOPA Lidocaine HCl (Lidocaine 1% (Pf) 5 Ml) 4.2 ml INJ NOW ONE Stop: 08/16/22 19:29 Last Admin: 08/16/22 21:41 Dose: Not Given Documented By: ROOPA Ondansetron HCl (Ondansetron 4 Mg Odt) 4 mg SL NOW ONE Stop: 08/16/22 19:31 Last Admin: 08/16/22 20:28 Dose: 4 mg Documented By: ROOPA Oxycodone/Acetaminophen (Oxycodone/Acetaminophen 5/325 Tablet) 1 tab PO NOW ONE Stop: 08/16/22 19:31 Last Admin: 08/16/22 20:27 Dose: 1 tab Documented By: ROOPA Phenazopyridine HCl (Phenazopyridine 100 Mg Tablet) 200 mg PO NOW ONE Stop: 08/16/22 19:29 Last Admin: 08/16/22 20:28 Dose: 200 mg Documented By: ROOPA Polyethylene Glycol (Polyethylene Glycol 3350 17 Gm Powd.Pack) 17 gm PO NOW ONE Stop: 08/16/22 19:31 Last Admin: 08/16/22 20:27 Dose: 17 gm Documented By: ROOPA Vital Signs Vital signs: Vital Signs - 8 hr 08/16/22 17:06 08/16/22 21:45 Temperature 98 F Pulse Rate 75 77 Respiratory Rate 18 Blood Pressure 131/71 137/80 Pulse Oximetry 98 100 Oxygen Delivery Method Room Air Room Air <Renaldo Briones DO - Last Filed: 08/17/22 01:07> Orders Ordered: Discontinued Medications Ceftriaxone Sodium (Ceftriaxone 2,000 Mg Vial) 1,000 mg IM NOW ONE Stop: 08/16/22 19:29 Last Admin: 08/16/22 21:41 Dose: Not Given Documented By: ROOPA Hyoscyamine (Hyoscyamine 0.125 Mg Tablet) 0.125 mg PO NOW ONE Stop: 08/16/22 21:15 Last Admin: 08/16/22 21:40 Dose: 0.125 mg Documented By: ROOPA Ketorolac Tromethamine (Ketorolac 30 Mg/Ml Vial) 15 mg IM NOW ONE Stop: 08/16/22 19:29 Ketorolac Tromethamine (Ketorolac 30 Mg/Ml Vial) 15 mg IV NOW ONE Stop: 08/16/22 20:16 Last Admin: 08/16/22 20:27 Dose: 15 mg Documented By: ROOPA Lidocaine HCl (Lidocaine 1% (Pf) 5 Ml) 4.2 ml INJ NOW ONE Stop: 08/16/22 19:29 Last Admin: 08/16/22 21:41 Dose: Not Given Documented By: ROOPA Ondansetron HCl (Ondansetron 4 Mg Odt) 4 mg SL NOW ONE Stop: 08/16/22 19:31 Last Admin: 08/16/22 20:28 Dose: 4 mg Documented By: HNG Oxycodone/Acetaminophen (Oxycodone/Acetaminophen 5/325 Tablet) 1 tab PO NOW ONE Stop: 08/16/22 19:31 Last Admin: 08/16/22 20:27 Dose: 1 tab Documented By: ROOPA Phenazopyridine HCl (Phenazopyridine 100 Mg Tablet) 200 mg PO NOW ONE Stop: 08/16/22 19:29 Last Admin: 08/16/22 20:28 Dose: 200 mg Documented By: ROOPA Polyethylene Glycol (Polyethylene Glycol 3350 17 Gm Powd.Pack) 17 gm PO NOW ONE Stop: 08/16/22 19:31 Last Admin: 08/16/22 20:27 Dose: 17 gm Documented By: ROOPA Vital Signs Vital signs: Vital Signs - 8 hr 08/16/22 17:06 08/16/22 21:45 Temperature 98 F Pulse Rate 75 77 Respiratory Rate 18 Blood Pressure 131/71 137/80 Pulse Oximetry 98 100 Oxygen Delivery Method Room Air Room Air MDM - Female Genitourinary <TARUN Young - Last Filed: 08/17/22 12:12> Lab Data 08/16/22 20:10 08/16/22 20:10 Labs: Lab Results 08/16/22 08/16/22 08/16/22 Range/Units 19:35 20:10 20:10 WBC 7.9 (4.5-11.0) X10^3/uL RBC 4.15 (4.0-5.2) X10^6/uL Hgb 11.2 L (12.0-16.0) g/dL Hct 35.4 L (36-46) % MCV 85.2 (80-100) fL MCH 27.1 (26-34) PG MCHC 31.8 (30-36) % RDW 16.0 H (11.6-14.8) % Plt Count 318 (150-400) X10^3/uL Neut % (Auto) 63.9 (50-75) % Lymph % (Auto) 20.5 L (25-40) % Sterling % (Auto) 11.5 (3-14) % Eos % (Auto) 3.6 (2-4) % Baso % (Auto) 0.5 (0-2) % Neut # (Auto) 5000 (5547-6779) /uL Lymph # (Auto) 1600 (3260-5381) /uL Sterling # (Auto) 900 (0-900) /uL Eos # (Auto) 300 (0-450) /uL Baso # (Auto) 0 (0-100) /uL Sodium 137 (137-145) mmol/L Potassium 4.5 (3.4-5.1) mmol/L Chloride 105 (98-107) mmol/L Carbon Dioxide 27 (22-32) mmol/L BUN 8 (7-17) mg/dL Creatinine 0.71 (0.52-1.04) mg/dL Estimated GFR > 60 (>60) mL/min BUN/Creatinine Ratio 11.3 (6-22) Glucose 84 (70-100) mg/dL Lactate (0.7-2.1) mmol/L Calcium 8.6 (8.4-10.2) mg/dL Magnesium 2.0 (1.6-2.3) mg/dL Total Bilirubin 0.3 (0.2-1.3) mg/dL AST 40 H (14-36) IU/L ALT 36 H (<35) IU/L Alkaline Phosphatase 93 (38-126) U/L C-Reactive Protein 1.4 H (<1.0) mg/dL Total Protein 7.2 (6.3-8.2) g/dL Albumin 3.7 (3.5-5.0) g/dL Globulin 3.5 (1.7-4.1) g/dL Albumin/Globulin Ratio 1.1 (1.0-2.8) Urine RBC 1-5/hpf (0-5/HPF) Urine WBC None seen (0-5/HPF) Ur Squamous Epith Cells None seen (0-5/HPF) Amorphous Sediment 2+ Urine Bacteria Few (2-10) H (None) 08/16/22 Range/Units 20:10 WBC (4.5-11.0) X10^3/uL RBC (4.0-5.2) X10^6/uL Hgb (12.0-16.0) g/dL Hct (36-46) % MCV (80-100) fL MCH (26-34) PG MCHC (30-36) % RDW (11.6-14.8) % Plt Count (150-400) X10^3/uL Neut % (Auto) (50-75) % Lymph % (Auto) (25-40) % Sterling % (Auto) (3-14) % Eos % (Auto) (2-4) % Baso % (Auto) (0-2) % Neut # (Auto) (0834-6343) /uL Lymph # (Auto) (3615-2953) /uL Sterling # (Auto) (0-900) /uL Eos # (Auto) (0-450) /uL Baso # (Auto) (0-100) /uL Sodium (137-145) mmol/L Potassium (3.4-5.1) mmol/L Chloride (98-107) mmol/L Carbon Dioxide (22-32) mmol/L BUN (7-17) mg/dL Creatinine (0.52-1.04) mg/dL Estimated GFR (>60) mL/min BUN/Creatinine Ratio (6-22) Glucose (70-100) mg/dL Lactate 1.0 (0.7-2.1) mmol/L Calcium (8.4-10.2) mg/dL Magnesium (1.6-2.3) mg/dL Total Bilirubin (0.2-1.3) mg/dL AST (14-36) IU/L ALT (<35) IU/L Alkaline Phosphatase (38-126) U/L C-Reactive Protein (<1.0) mg/dL Total Protein (6.3-8.2) g/dL Albumin (3.5-5.0) g/dL Globulin (1.7-4.1) g/dL Albumin/Globulin Ratio (1.0-2.8) Urine RBC (0-5/HPF) Urine WBC (0-5/HPF) Ur Squamous Epith Cells (0-5/HPF) Amorphous Sediment Urine Bacteria (None) MDM Narrative Medical decision making narrative: Chief Complaint: Ochoa catheter with hematuria, suprapubic pain, flank pain status post hysterectomy Independent historian: Patient Differential diagnoses include but are not limited to: Bladder infection secondary to laceration, interstitial cystitis, acute cystitis, pyelonephritis, bladder spasms, obstructive uropathy, pelvic inflammatory disease, vaginal infection, functional obstruction of Ochoa catheter, intra-abdominal infection, bacterial peritonitis, obstructive uropathy I have independently reviewed the patient's vital signs and nursing notes as well as prior records if available. Pertinent lab findings reviewed: Labs are pending at time of hand off Pertinent Imaging reviewed: Imaging deferred at this time per Dr. Lujan, bladder scan with maximum of 150 mL after milking/emptying Ochoa catheter of all urine. This could be related to edema over the size of her bladder. Course of care: Dr. Lujan came to the bedside and removed her postoperative bandage, she has erythema above the incision which is concerning for cellulitis although there is no wound discharge, dehiscence or other signs of infection including fluctuance. Patient is tender surrounding the incision and below it. Bilateral inguinal and flank pain to palpation, abdomen is soft but tender surrounding the incision. No discharge from the incision. Dr. Leon was involved with this patient's operation and did a three-way closure of her bladder. Concern for fluid leaking into the peritoneum. Patient's Ochoa catheter tubing and bag was changed from report, clean urine sample taken from the port and sent down for microscopy, urine dip of dirty urine is positive for blood and protein, not positive for leukocytes or nitrites. Pending UA, Dr. Lujan would like a phone call when microscopy results and treatment with antibiotics if needed per discussion with Dr. Leon and Dr. Lujan. This was shared with Dr. Briones. Patient was handed over in care and he accepts handoff. Patient is having an IV placed, labs drawn for CBC, CRP, lactic acid, and is currently nontoxic appearing, afebrile, having chills but Dr. Lujan thinks this is likely related to hot flashes. Patient had a hysterectomy without oophorectomy. Denies abnormal vaginal discharge but has had occasional spots of blood. States that she does not have any vaginal itching, wound or pain. I did a external exam and did not find any abnormal tissue, discharge for areas of concern. Social considerations that may affect disposition: none Questions are addressed and there is agreement with the plan and for follow-up. Patient is appropriate for outpatient management. MIPS: This encounter doesn't have any diagnosis' associated with MIPS criteria. Dr briones: Received turned over. You patient's history and physical workup up to this point. Patient has been evaluated by Dr. Lujan with special investigator. Plan to be is to discharge patient home. Was given a dose of hyoscyamine here under recommendation by urology. Dr. Lujan will provide an outpatient prescription for this. Patient was given return precautions. She expressed understanding and agreement. <Renaldo Anselmo, DO - Last Filed: 08/17/22 01:07> Lab Data Labs: Lab Results 08/16/22 08/16/22 08/16/22 Range/Units 19:35 20:10 20:10 WBC 7.9 (4.5-11.0) X10^3/uL RBC 4.15 (4.0-5.2) X10^6/uL Hgb 11.2 L (12.0-16.0) g/dL Hct 35.4 L (36-46) % MCV 85.2 (80-100) fL MCH 27.1 (26-34) PG MCHC 31.8 (30-36) % RDW 16.0 H (11.6-14.8) % Plt Count 318 (150-400) X10^3/uL Neut % (Auto) 63.9 (50-75) % Lymph % (Auto) 20.5 L (25-40) % Sterling % (Auto) 11.5 (3-14) % Eos % (Auto) 3.6 (2-4) % Baso % (Auto) 0.5 (0-2) % Neut # (Auto) 5000 (2614-7030) /uL Lymph # (Auto) 1600 (9937-5960) /uL Sterling # (Auto) 900 (0-900) /uL Eos # (Auto) 300 (0-450) /uL Baso # (Auto) 0 (0-100) /uL Sodium 137 (137-145) mmol/L Potassium 4.5 (3.4-5.1) mmol/L Chloride 105 (98-107) mmol/L Carbon Dioxide 27 (22-32) mmol/L BUN 8 (7-17) mg/dL Creatinine 0.71 (0.52-1.04) mg/dL Estimated GFR > 60 (>60) mL/min BUN/Creatinine Ratio 11.3 (6-22) Glucose 84 (70-100) mg/dL Lactate (0.7-2.1) mmol/L Calcium 8.6 (8.4-10.2) mg/dL Magnesium 2.0 (1.6-2.3) mg/dL Total Bilirubin 0.3 (0.2-1.3) mg/dL AST 40 H (14-36) IU/L ALT 36 H (<35) IU/L Alkaline Phosphatase 93 (38-126) U/L C-Reactive Protein 1.4 H (<1.0) mg/dL Total Protein 7.2 (6.3-8.2) g/dL Albumin 3.7 (3.5-5.0) g/dL Globulin 3.5 (1.7-4.1) g/dL Albumin/Globulin Ratio 1.1 (1.0-2.8) Urine RBC 1-5/hpf (0-5/HPF) Urine WBC None seen (0-5/HPF) Ur Squamous Epith Cells None seen (0-5/HPF) Amorphous Sediment 2+ Urine Bacteria Few (2-10) H (None) 08/16/22 Range/Units 20:10 WBC (4.5-11.0) X10^3/uL RBC (4.0-5.2) X10^6/uL Hgb (12.0-16.0) g/dL Hct (36-46) % MCV (80-100) fL MCH (26-34) PG MCHC (30-36) % RDW (11.6-14.8) % Plt Count (150-400) X10^3/uL Neut % (Auto) (50-75) % Lymph % (Auto) (25-40) % Sterling % (Auto) (3-14) % Eos % (Auto) (2-4) % Baso % (Auto) (0-2) % Neut # (Auto) (6032-2832) /uL Lymph # (Auto) (9753-5157) /uL Sterling # (Auto) (0-900) /uL Eos # (Auto) (0-450) /uL Baso # (Auto) (0-100) /uL Sodium (137-145) mmol/L Potassium (3.4-5.1) mmol/L Chloride (98-107) mmol/L Carbon Dioxide (22-32) mmol/L BUN (7-17) mg/dL Creatinine (0.52-1.04) mg/dL Estimated GFR (>60) mL/min BUN/Creatinine Ratio (6-22) Glucose (70-100) mg/dL Lactate 1.0 (0.7-2.1) mmol/L Calcium (8.4-10.2) mg/dL Magnesium (1.6-2.3) mg/dL Total Bilirubin (0.2-1.3) mg/dL AST (14-36) IU/L ALT (<35) IU/L Alkaline Phosphatase (38-126) U/L C-Reactive Protein (<1.0) mg/dL Total Protein (6.3-8.2) g/dL Albumin (3.5-5.0) g/dL Globulin (1.7-4.1) g/dL Albumin/Globulin Ratio (1.0-2.8) Urine RBC (0-5/HPF) Urine WBC (0-5/HPF) Ur Squamous Epith Cells (0-5/HPF) Amorphous Sediment Urine Bacteria (None) MDM Narrative Medical decision making narrative: Chief Complaint: Ochoa catheter with hematuria, suprapubic pain, flank pain status post hysterectomy Independent historian: Patient Differential diagnoses include but are not limited to: Bladder infection secondary to laceration, interstitial cystitis, acute cystitis, pyelonephritis, bladder spasms, obstructive uropathy, pelvic inflammatory disease, vaginal infection, functional obstruction of Ochoa catheter, intra-abdominal infection, bacterial peritonitis, obstructive uropathy I have independently reviewed the patient's vital signs and nursing notes as well as prior records if available. Pertinent lab findings reviewed: Labs are pending at time of hand off Pertinent Imaging reviewed: Imaging deferred at this time per Dr. Lujan, bladder scan with maximum of 150 mL after milking/emptying Ochoa catheter of all urine. This could be related to edema over the size of her bladder. Course of care: Dr. Lujan came to the bedside and removed her postoperative bandage, she has erythema above the incision which is concerning for cellulitis although there is no wound discharge, dehiscence or other signs of infection including fluctuance. Patient is tender surrounding the incision and below it. Bilateral inguinal and flank pain to palpation, abdomen is soft but tender surrounding the incision. No discharge from the incision. Dr. Leon was involved with this patient's operation and did a three-way closure of her bladder. Concern for fluid leaking into the peritoneum. Patient's Ochoa catheter tubing and bag was changed from report, clean urine sample taken from the port and sent down for microscopy, urine dip of dirty urine is positive for blood and protein, not positive for leukocytes or nitrites. Pending UA, Dr. Lujan would like a phone call when microscopy results and treatment with antibiotics if needed per discussion with Dr. Leon and Dr. Lujan. This was shared with Dr. Briones. Patient was handed over in care and he accepts handoff. Patient is having an IV placed, labs drawn for CBC, CRP, lactic acid, and is currently nontoxic appearing, afebrile, having chills but Dr. Lujan thinks this is likely related to hot flashes. Patient had a hysterectomy without oophorectomy. Denies abnormal vaginal discharge but has had occasional spots of blood. States that she does not have any vaginal itching, wound or pain. I did a external exam and did not find any abnormal tissue, discharge for areas of concern. Social considerations that may affect disposition: none Questions are addressed and there is agreement with the plan and for follow-up. Patient is appropriate for outpatient management. MIPS: This encounter doesn't have any diagnosis' associated with MIPS criteria. Dr briones: Received turned over. You patient's history and physical workup up to this point. Patient has been evaluated by Dr. Lujan with special investigator. Plan to be is to discharge patient home. Was given a dose of high Cosamin here under recommendation by urology. Dr. Lujan will provide an outpatient prescription for this. Patient was given return precautions. She expressed understanding and agreement. Discharge Plan Departure Patient Disposition: Home Clinical Impression: History of hysterectomy, Post surgical complication Activity Restrictions/Additional Instructions: I recommend that you follow all of the postoperative instructions given to you by the surgeon. Continue to take all of your medications as directed. Return to the emergency department for any new symptoms. Prescriptions: No Action lorazepam [Ativan] 1 MG tablet 1 mg PO PRN PRN (Reason: Anxiety) Qty: 0 hyoscyamine sulfate [Levsin] 0.125 mg tablet 0.125 mg PO QID PRN (Reason: bladder spasms) Qty: 14 0RF phenazopyridine [Pyridium] 200 mg tablet 200 mg PO TID PRN (Reason: pain) Qty: 20 2RF oxycodone 5 mg tablet 5 mg PO Q4H PRN (Reason: pain) Qty: 30 0RF sertraline [Zoloft] 50 mg tablet 50 mg PO DAILY tacrolimus 0.1 % ointment 1 applic topical BID PRN (Reason: As directed) sulfamethoxazole-trimethoprim [Bactrim] 400-80 mg tablet 1 tab PO DAILY Qty: 30 0RF Referrals: Aletha Lujan MD [Physician] - Jaydon Leon MD [Physician] - Magdiel Ware MD [Primary Care Provider] - Stand Alone Forms: Patient Portal/API
[2022-08-16 20:10] LABS: Amorphous Sediment Urine 2+; Bacteria Urine Few (2-10); RBC Urine 1-5/HPF (0-5/HPF); Squamous Epithelial Cell Urine None Seen (0-5/HPF); WBC Urine None Seen (0-5/HPF)
[2022-08-16 20:18] LABS: Add Manual Diff / Slide Review NO; Basophils Absolute Auto 0 /uL (0-100); Basophils Percent Auto 0.5 % (0-2); Eosinophils Absolute Auto 300 /uL (0-450); Eosinophils Percent Auto 3.6 % (2-4); Hematocrit 35.4 % (36-46); Hemoglobin 11.2 g/dL (12.0-16.0); Lymphocytes Absolute Auto 1600 /uL (1100-4500); Lymphocytes Percent Auto 20.5 % (25-40); Mean Corpuscular HGB Conc 31.8 % (30-36); Mean Corpuscular Hemoglobin 27.1 PG (26-34); Mean Corpuscular Volume 85.2 fL (80-100); Monocytes Absolute Auto 900 /uL (0-900); Monocytes Percent Auto 11.5 % (3-14); Neutrophils Absolute Auto 5000 /uL (1500-7000); Neutrophils Percent Auto 63.9 % (50-75); Platelet Count 318 X10^3/uL (150-400); Red Blood Cell Count 4.15 X10^6/uL (4.0-5.2); White Blood Cell Count 7.9 X10^3/uL (4.5-11.0)
[2022-08-16] MEDS: KETOROLAC 30 MG/ML VIAL 15 MG IV (20:27)
[2022-08-16] MEDS: polyethylene glycoL 3350 17 GM POWD.PACK PO (20:27)
[2022-08-16] MEDS: OXYCODONE/ACETAMINOPHEN 5/325 TABLET 1 TAB PO (20:27)
[2022-08-16] MEDS: ONDANSETRON 4 MG ODT SL (20:28)
[2022-08-16] MEDS: PHENAZOPYRIDINE 100 MG TABLET 200 MG PO (20:28)
[2022-08-16 20:33] LABS: Alanine Aminotransferase 36 IU/L (<35); Albumin 3.7 g/dL (3.5-5.0); Albumin Globulin Ratio 1.1 (1.0-2.8); Alkaline Phosphatase 93 U/L (38-126); Aspartate Aminotransferase 40 IU/L (14-36); BUN Creatinine Ratio 11.3 (6-22); Bilirubin Total 0.3 mg/dL (0.2-1.3); Blood Urea Nitrogen 8 mg/dL (7-17); C-Reactive Protein Quant 1.4 mg/dL (<1.0); Calcium 8.6 mg/dL (8.4-10.2); Carbon Dioxide 27 mmol/L (22-32); Chloride 105 mmol/L (98-107); Estimated Glomerular Filt Rate > 60 mL/min (>60); Globulin 3.5 g/dL (1.7-4.1); Glucose 84 mg/dL (70-100); HEMOLYSIS 18 (0-50); Potassium 4.5 mmol/L (3.4-5.1); Sodium 137 mmol/L (137-145); Total Protein 7.2 g/dL (6.3-8.2)
--- NOTE | 2022-08-16 20:45 | PC.NURSE ---
Pt with hogan catheter after recent surgery. reports bladder feels full and causing pressure to lower abdomen. has more bruising to area which she thinks is related. hogan catheter draining clear yellow urine.
[2022-08-16] MEDS: HYOSCYAMINE 0.125 MG TABLET PO (21:40)
--- NOTE | 2022-08-16 21:42 | PM.CN ---
History of Present Illness Consult details Date Patient Seen: 08/16/22 Time Patient Seen: 19:55 Chief complaint: Thinks blood in urine Reason for consult: Postop complications Narrative: Patient is a 46-year-old 0 who is postop day # 5 status post laparoscopic supracervical hysterectomy with bilateral salpingectomy. She had an exploratory laparotomy with this inadvertent cystotomy repair. She reports that she saw blood in the urine and began having low abdominal pain earlier today. She has not had any fever. She is having some hot flashes. She feels like she has to void, but does not feel that the bladder is Ochoa draining. Meds Home Medications and Allergies Home Medications Medication Instructions Recorded Confirmed Type lorazepam 1 mg tablet (Ativan) 1 mg PO PRN PRN Anxiety ##0 07/14/16 08/08/22 History sertraline 50 mg tablet (Zoloft) 50 mg PO DAILY 04/10/22 08/08/22 History tacrolimus 0.1 % topical ointment 1 applic topical BID PRN As 04/10/22 08/08/22 History directed oxycodone 5 mg tablet 5 mg PO Q4H PRN pain #30 tabs 08/12/22 Rx sulfamethoxazole 400 1 tab PO DAILY #30 tabs 08/13/22 Rx mg-trimethoprim 80 mg tablet (Bactrim) hyoscyamine sulfate 0.125 mg 0.125 mg PO QID PRN bladder spasms 08/16/22 Rx tablet (Levsin) #14 tabs phenazopyridine 200 mg tablet 200 mg PO TID PRN pain #20 tabs 08/16/22 Rx (Pyridium) Allergies Allergy/AdvReac Type Severity Reaction Status Date / Time latex [LATEX] Allergy Unknown Verified 08/10/22 13:50 Penicillins Allergy Anaphylaxis Verified 08/11/22 09:08 Biologics Allergy Rash Uncoded 08/11/22 09:08 Exam Vital Signs (past 8 hours): - 08/16/22 17:06 Temperature 98 F Pulse Rate 75 Respiratory Rate 18 Blood Pressure 131/71 Pulse Oximetry 98 Oxygen Delivery Method Room Air Oxygen Delivery Method Room Air Narrative Exam Narrative: Generally: Patient in reclining chair, no acute distress Abdomen: The Aquacel dressing is removed. There is an ecchymotic area from the middle to the right edge of the upper incision. This is outlined with permanent marker. There is no drainage from the incisions. The laparoscopy incisions have Steri-Strips on them that are removed. New Steri-Strips are applied. Objective Labs 08/16/22 20:10 08/16/22 20:10 Labs: Laboratory Results - last 24 hr 08/16/22 08/16/22 08/16/22 19:35 20:10 20:10 WBC 7.9 RBC 4.15 Hgb 11.2 L Hct 35.4 L MCV 85.2 MCH 27.1 MCHC 31.8 RDW 16.0 H Plt Count 318 Neut % (Auto) 63.9 Lymph % (Auto) 20.5 L [place] % (Auto) 11.5 Eos % (Auto) 3.6 Baso % (Auto) 0.5 Neut # (Auto) 5000 Lymph # (Auto) 1600 [place] # (Auto) 900 Eos # (Auto) 300 Baso # (Auto) 0 Sodium 137 Potassium 4.5 Chloride 105 Carbon Dioxide 27 BUN 8 Creatinine 0.71 Estimated GFR > 60 BUN/Creatinine Ratio 11.3 Glucose 84 Lactate Calcium 8.6 Magnesium 2.0 Total Bilirubin 0.3 AST 40 H ALT 36 H Alkaline Phosphatase 93 C-Reactive Protein 1.4 H Total Protein 7.2 Albumin 3.7 Globulin 3.5 Albumin/Globulin Ratio 1.1 Urine RBC 1-5/hpf Urine WBC None seen Ur Squamous Epith Cells None seen Amorphous Sediment 2+ Urine Bacteria Few (2-10) H 08/16/22 20:10 WBC RBC Hgb Hct MCV MCH MCHC RDW Plt Count Neut % (Auto) Lymph % (Auto) [place] % (Auto) Eos % (Auto) Baso % (Auto) Neut # (Auto) Lymph # (Auto) [place] # (Auto) Eos # (Auto) Baso # (Auto) Sodium Potassium Chloride Carbon Dioxide BUN Creatinine Estimated GFR BUN/Creatinine Ratio Glucose Lactate 1.0 Calcium Magnesium Total Bilirubin AST ALT Alkaline Phosphatase C-Reactive Protein Total Protein Albumin Globulin Albumin/Globulin Ratio Urine RBC Urine WBC Ur Squamous Epith Cells Amorphous Sediment Urine Bacteria [facility] Medical History Bladder perforation, intraoperative Heavy menstrual period (~2016) History of urinary incontinence Insomnia, unspecified (~2002) Irregular menstrual cycle (~2016) Obstructive sleep apnea of adult (~03/2018) Painful menstrual periods (~2016) Rheumatoid arthritis Sjogrens syndrome Snoring (~2002) Social History marital status: details: brian Palafox, lives in [place] household members: spouse and family lives independently: Yes caregiver/support person: No housing: apartment occupational status: unemployed Tobacco & Substance Use Smoking Status: Former smoker alcohol intake: current substance use type: does not use Assessment & Plan Assessment & Plan narrative: Assessment: 46-year-old 0 postop day # 5 status post laparoscopic supracervical hysterectomy with bilateral salpingectomy, inadvertent cystotomy with exploratory laparotomy and repair. Clean urine Normal white blood count Plan: Levsin 0.125 mg sublingual x1, Rx called in to [facility] Patient given Pyridium Continue oral Bactrim daily Pyridium 200 mg t.i.d., Rx called in to [facility] Stat lock applied to the upper right thigh We will follow-up by phone tomorrow morning to see what the area above the incision is looking like and decide if she will keep her appointment in the afternoon. Time Spent With Patient Time with patient: 30 to 49 minutes with 50% spent counseling/coordinating care Critical Care time: I spent a total of [] minutes of critical care time on this patient's care today; this time is exclusive of procedural time.
[2022-08-16 21:45] VITALS: BP 137/80; PULSE 77; O2SAT 100
== END 2022-08-16 21:57 | disposition home or self-care (01) ==
PROVIDERS: Nurse Practitioner Critical Care Medicine; Emergency Provider Emergency Medicine; PCP Family Medicine
DX: T81.9XXA Unspecified complication of procedure, initial encounter (principal); T83.9XXA Unspecified complication of genitourinary prosthetic device, implant and graft, initial encounter; Z90.710 Acquired absence of both cervix and uterus
CPT/HCPCS: 36415; 80053; 81015; 83605; 83735; 85025; 86140; 87086; 96374; 99284; J1885

== ENCOUNTER → 2022-08-18 14:30 | Outpatient (CLI) | payer OTHER, SELFPAY ==
[2022-08-18 10:52] VITALS: BMI 40.7
[2022-08-18 15:54] LABS: Appearance Urine UA SL CLOUDY; Color Urine UA ORANGE
[2022-08-18 15:55] LABS: Bacteria Urine None Seen; Culture Indicated Urine Cult Not Indicated; RBC Urine 10-30/HPF (0-5/HPF); Squamous Epithelial Cell Urine 0-1 /HPF (0-5/HPF); WBC Urine 1-5/HPF (0-5/HPF)
== END ==
PROVIDERS: PCP Family Medicine; Visit Provider Obstetrics & Gynecology
DX: R31.9 Hematuria, unspecified (principal)
CPT/HCPCS: 81001; 87086

== ENCOUNTER → 2022-08-30 08:02 | Outpatient (CLI) | payer OTHER, SELFPAY ==
[2022-08-18 10:52] VITALS: BMI 40.7
--- NOTE | 2022-08-30 08:03 | DI.RAD.S_ITS ---
PROCEDURE: FL CYSTOGRAM INDICATIONS: Bladder perforation during surgery COMPARISON: None. FINDINGS: KUB: Preprocedural hide buyer film demonstrates a normal bowel gas pattern. A Ochoa catheter is present. No suspicious abdominal calcifications. Bony structures are unremarkable. Bladder: The filled bladder appears normal in contour. Early images demonstrate no bladder wall trabeculations. No vesicoureteral reflux or contrast extravasation. Postvoid: No significant postvoid residual. IMPRESSION: Normal cystogram. No evidence of bladder leak. Dictated by: Eugene Gonzalez M.D. on 08/30/2022 at 11:26 Approved by: Eugene Gonzalez M.D. on 08/30/2022 at 11:26
--- NOTE | 2022-08-30 09:00 | PC.NURSE ---
Ochoa cath removed post procedure per Dr Amador. FC removed intact with no problems. Home care instructions given by Dr Amador. Pt understands home care. DC home.
== END ==
PROVIDERS: PCP Family Medicine; Referring Provider Obstetrics & Gynecology; Visit Provider Obstetrics & Gynecology
DX: N99.72 Accidental puncture and laceration of a genitourinary system organ or structure during other procedure (principal); T81.9XXA Unspecified complication of procedure, initial encounter
CPT/HCPCS: 74430

== ENCOUNTER → 2023-03-29 07:59 | Outpatient (CLI) | payer OTHER, SELFPAY ==
[2022-08-18 10:52] VITALS: BMI 40.7
--- NOTE | 2023-03-29 | DI.MG.S_ITS ---
BILATERAL DIGITAL SCREENING MAMMOGRAM 3D/2D WITH CAD: 03/29/2023 CLINICAL: Routine screening. Baseline exam. Family history of breast cancer. No prior exams were available for comparison. Both breasts are heterogeneously dense, which may obscure small masses (category c / 51-75% glandular tissue). Current study was also evaluated with a Computer Aided Detection (CAD) system. There is a focal asymmetry in the right breast at 12 o'clock middle depth. No other significant masses, calcifications, or other findings are seen in either breast. IMPRESSION: INCOMPLETE: NEEDS ADDITIONAL IMAGING EVALUATION The focal asymmetry in the right breast is indeterminate. Additional views with possible ultrasound are recommended. Based on the Tyrer Cuzick model (a risk assessment model) the patient's lifetime risk is 19.7% and her 10 year risk is 4.4%. According to the ACR, ACS, and NCCN guidelines, an annual breast MRI exam along with mammogram is recommended if the patient's lifetime risk is 20% or greater. This exam was interpreted at Station ID: [id number]. NOTE: For mammograms, a report in lay terms will be sent to the patient. Approximately 15% of breast malignancies will not be visualized mammographically. In the management of a palpable breast mass, a negative mammogram must not discourage biopsy of a clinically suspicious lesion. Electronically Signed By: Mehnaz vivar/romero:03/29/2023 16:21:56 letter sent: Additional Imaging Needed ACR BI-RADS Category 0: Incomplete [id number]
== END ==
PROVIDERS: PCP Family Medicine; Referring Provider Family Medicine; Visit Provider Family Medicine
DX: Z12.31 Encounter for screening mammogram for malignant neoplasm of breast (principal); Z80.3 Family history of malignant neoplasm of breast; N64.89 Other specified disorders of breast
CPT/HCPCS: 77063; 77067

== ENCOUNTER → 2023-09-11 | Outpatient (CLI) | payer OTHER, SELFPAY ==
[2022-08-18 10:52] VITALS: BMI 40.7
--- NOTE | 2023-09-11 | PATH_ITS ---
[facility] Accession Number: [id number] No. of containers..01 Tissue . 01 Material submitted: . breast - RIGHT BREAST MASS 12:00 5CMFN . 01 Clinical history: . 12:00 5CMFN . 01 Diagnosis: RIGHT BREAST MASS, 12 O'CLOCK, 5 CM FN, IMAGE-GUIDED CORE BIOPSIES: Benign breast parenchyma with focal ductal hyperplasia, usual-type, without atypia. Focal duct ectasia. Fibrocystic changes with apocrine metaplasia. Focal fat necrosis. 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 Please see comment. Negative for in situ or invasive carcinoma. V 09/14/2023 1007 Local . 01 Comment: Examination of the breast mass biopsies reveals benign breast parenchyma with focal ductal hyperplasia, focal stromal fibrosis, and changes suggestive of pseudoangiomatous stromal hyerplasia. P63 and myosin immunostains are performed and highlight the presence of basal/myoepithelial layer. . These results along with the morphology support the diagnosis, and argue against infiltrating carcinoma. . Deeper levels have been examined. . As part of ongoing quality assurance group leader, this case is also reviewed by Dr. Cherise Talamantes, who concurs with the interpretation. . Clinical and radiologic correlation is recommended to ensure that the area of interest has been adequately sampled. . * This test was developed and its performance characteristics determined by [facility]. It has not been cleared or approved by the U.S. Food and Drug Administration. The FDA has determined that such clearance or approval is not necessary. This test is used for clinical purposes. It should not be regarded as investigational or for research. . 01 Electronically signed: . Abel Erazo MD, Pathologist NPI- [id number] . 01 Gross description: . Received is one formalin-filled container labeled with the patient's name and designated right breast mass 12 o'clock 5 cm FN. The sample is received with plastic filter in container and sample loose in container, and consists of multiple light yellow-rabago pieces of tissue which range in size from less than 0.1 cm to 1.5 x 0.3 x 0.3 cm. All fragments are totally submitted in cassette A1. . Possible collection date and time per requisition 09/11/2023 at 1542 hours. Total fixation time approximately 12 hours. (DC:[id number]) /CECILE 09/12/2023 0626 Local . 01 Pathologist provided ICD-10: N63.10 . 01 CPT . 758882, Z76580, E28710 Performed at: 01 [facility] [address] [place] [address], [place], [place] [id number] MD Javy Vásquez MD Phone: [phone]
--- NOTE | 2023-09-11 | DI.MG.S_ITS ---
UNILATERAL RIGHT DIGITAL DIAGNOSTIC MAMMOGRAM 3D/2D POST-PROCEDURE IMAGING FOR MARKER PLACEMENT: 09/11/2023 CLINICAL: Post right breast ultrasound biopsy, clip placment imaging. Comparison is made to exams dated: 08/24/2023 ultrasound, 08/24/2023 mammogram - [facility], and 03/29/2023 mammogram - [facility]. The right breast is heterogeneously dense, which may obscure small masses (category c / 51-75% glandular tissue). There is a marker clip in the appropriate position in the right breast at 12 o'clock middle depth. This marker clip placement is at the biopsy site. This correlates with ultrasound findings and the biopsy. IMPRESSION: POST PROCEDURE MAMMOGRAM FOR MARKER PLACEMENT There was a successful marker clip placement in the right breast middle depth. Based on Tyrer-Cuzick model (a risk assessment model), the patient's lifetime risk is 20.1% and her 10 year risk is 4.7%. If a patient has an elevated risk, a more comprehensive evaluation should be considered and/or a referral to a genetic counselor. The [place] [employer], [place] [employer], and NCCN Guidelines advise the consideration of Breast MRI as an adjunct to screening mammography in patients whose Lifetime risk to develop breast cancer is 20% or higher. This exam was interpreted at Station ID: [id number]. NOTE: For mammograms, a report in lay terms will be sent to the patient. Approximately 15% of breast malignancies will not be visualized mammographically. In the management of a palpable breast mass, a negative mammogram must not discourage biopsy of a clinically suspicious lesion. Electronically Signed By: Pasquale mansfield/romero:09/13/2023 07:47:36 ACR BI-RADS Category Post-procedure mammogram for marker placement
--- NOTE | 2023-09-11 13:44 | DI.US.S_ITS ---
MULTIPLE ULTRASOUND GUIDED BIOPSIES RIGHT BREAST WITH MARKING DEVICE INSERTED AND POST MAMMOGRAPHIC IMAGIN09/11/2023 CLINICAL: Right breast mass. PATIENT CONSENT: Risks (minor bleeding, infection, vasovagal reaction and repeat procedure), benefits and alternatives were explained to the patient and written informed consent was obtained. Correlation is made to exams dated: 08/24/2023 ultrasound, 08/24/2023 mammogram - [facility] [place], and 03/29/2023 mammogram - [facility]. An ultrasound guided biopsy using real-time ultrasound was performed for the mass located in the right breast at 12 o'clock middle depth 5 cm from the nipple. This was described on the previous mammography and ultrasound reports. The skin was prepped in the usual manner. Local anesthetic was administered to the access site. A skin corey was made in the breast. The abnormality was approached from the lateral aspect. A 14 gauge biopsy needle was placed adjacent to the abnormality under ultrasound guidance. Once the needle was documented to be in the correct location, two specimens were obtained using BARD Elevation biopsy device. In addition, 3 additional samples were obtained by 16 gauge Achieve biopsy device. A clip was inserted into the biopsy cavity. A sterile dressing was applied to the access site. Post procedure mammographic imaging demonstrates the location device at the targeted area. The specimens were sent to the laboratory for pathological analysis. A second ultrasound guided biopsy was scheduled but not performed as the lymph node that was visualized on the diagnostic evaluation did not appear as prominent and the cortex was normal in thickness. IMPRESSION: ULTRASOUND GUIDED BIOPSY BENIGN Ultrasound guided biopsy of the mass in the right breast at 12 o'clock middle depth 5 cm from the nipple was successful. Pathology indicates benign apocrine metaplasia (AM), ductal ectasia (DE), usual ductal hyperplasia (DHU), fat necrosis (FN), and pseudoangiomatous stromal hyperplasia (PSH). Pathology results are concordant with imaging findings. Ultrasound guided biopsy of the abnormality in the right axillary lymph node was not performed as the lymph node appeared within normal limits. A biopsy of the lymph node could be reconsidered. Recommend follow up right breast mammogram and ultrasound in 6 months to document continued stabillity. This exam was interpreted at Station ID: [id number]. Pasquale zunigay/:09/20/2023 19:19:00 Entry: - 09/25/2023 13:12:39
== END ==
PROVIDERS: PCP Family Medicine; Referring Provider Family Medicine; Visit Provider Family Medicine
DX: N60.41 Mammary duct ectasia of right breast (principal); N60.81 Other benign mammary dysplasias of right breast; N64.1 Fat necrosis of breast; R59.0 Localized enlarged lymph nodes; R92.331 Mammographic heterogeneous density, right breast
CPT/HCPCS: 19083; 77065

== ENCOUNTER → 2023-12-06 12:14 | Outpatient (CLI) | payer OTHER, SELFPAY ==
[2022-08-18 10:52] VITALS: BMI 40.7
--- NOTE | 2023-12-06 12:16 | DI.RAD.S_ITS ---
PROCEDURE: XR TOE LT MIN 2V INDICATIONS: Left toe injury TECHNIQUE: 3 views of the left great toe(s) acquired. COMPARISON: None. FINDINGS: Bones: No fractures or dislocations. No suspicious bony lesions. Soft tissues: No suspicious soft tissue densities. IMPRESSION: No acute bony abnormality. If there is persistent clinical concern for occult fracture given adequate mechanism of injury, consider repeat imaging in 10-14 days. Immobilization as clinically indicated. Dictated by: Pasquale Packer M.D. on 12/06/2023 at 19:00 Approved by: Pasquale Packer M.D. on 12/06/2023 at 19:01
== END ==
PROVIDERS: PCP Family Medicine; Referring Provider Nurse Practitioner Family; Visit Provider Nurse Practitioner Family
DX: S99.922A Unspecified injury of left foot, initial encounter (principal); X58.XXXA Exposure to other specified factors, initial encounter
CPT/HCPCS: 73660

== ENCOUNTER 2024-01-27 13:41 | Emergency (ER) | payer OTHER, SELFPAY ==
[2022-08-18 10:52] VITALS: BMI 40.7
[2024-01-27] VITALS (23 sets, daily range): BP systolic 139–177; BP diastolic 63–90; PULSE 79–104; RESP 20–28; TEMP 36.9; O2SAT 94–100; BMI 39.1
[2024-01-27] MEDS: EPINEPHrine 1 MG/ML 0.5 MG IM (13:44)
--- NOTE | 2024-01-27 13:48 | ED_ITS ---
HPI - Allergic Reaction <Lynn Garcia DO - Last Filed: 02/03/24 09:49> General Chief complaint: Allergic Reaction Stated complaint: SOB severe Time Seen by Provider: 01/27/24 13:46 History of Present Illness HPI narrative: Patient 48-year-old female without significant past medical history presenting today with allergic reaction. Reports that she had shrimp, with some seafood flavoring about 1 hour ago was presenting today with hives tongue swelling lip s welling difficulty breathing. No prior history of anaphylaxis. Related Data Home Medications Medication Instructions Recorded Confirmed lorazepam 1 mg tablet (Ativan) 1 mg PO PRN PRN Anxiety ##0 07/14/16 12/06/23 etodolac 400 mg tablet 400 mg PO Q12H PRN 12/06/23 12/06/23 sertraline 50 mg tablet (Zoloft) 100 mg PO BID 12/06/23 12/06/23 Previous Rx's Medication Instructions Recorded epinephrine 0.3 mg/0.3 mL 0.3 mg (0.3 mL) IM Q4H PRN 01/27/24 injection, auto-injector (EpiPen anaphylaxis #2 ea 2-Finn) famotidine 20 mg tablet (Acid 20 mg PO DAILY #3 tabs 01/27/24 Scaffold Worker (famotidine)) prednisone 20 mg tablet 40 mg (2 x 20 mg) PO DAILY #10 tabs 01/27/24 Allergies Allergy/AdvReac Type Severity Reaction Status Date / Time latex [LATEX] Allergy Unknown ITCHING Verified 01/27/24 14:13 meloxicam Allergy Swelling Verified 01/27/24 14:13 of Lip/Tongue/Throat Penicillins Allergy Anaphylaxis Verified 10/25/23 16:16 Biologics Allergy Rash Uncoded 10/25/23 16:16 Patient History <Lynn Garcia DO - Last Filed: 02/03/24 09:49> Medical History Bladder perforation, intraoperative History of urinary incontinence Rheumatoid arthritis Sjogrens syndrome Insomnia, unspecified (~2002) Obstructive sleep apnea of adult (~03/2018) Snoring (~2002) Social History marital status: details: brian Palafox, lives in [place] household members: spouse lives independently: Yes caregiver/support person: No housing: apartment occupational status: employed Smoking Status: Former smoker alcohol intake: current substance use type: does not use Smoking Status: Former smoker alcohol intake frequency: a few times a week Substance Use Type: does not use Exam <Lynn Garcia, DO - Last Filed: 02/03/24 09:49> Initial Vital Signs Initial Vital Signs: Vital Signs Pulse Rate 104 H 01/27/24 13:44 Respiratory Rate 28 H 01/27/24 13:44 Pulse Oximetry 99 01/27/24 13:44 GENERAL: [id number] distress HEENT: Head atraumatic,EOMI, pupils reactive, lip swelling urticaria around face and lips tongue swelling CARDIOVASCULAR: Regular rate and rhythm without murmurs, rubs or gallops. RESPIRATORY: Breath sounds equal bilaterally, no wheezes rales or rhonchi. ABDOMEN: Soft, nontender. Normoactive bowel sounds all 4 quadrants. No guarding or rebound. EXTREMITIES: Normal range of motion, no clubbing or edema. Neurovascularly intact NEUROLOGICAL: Alert and oriented x4 SKIN: Warm, dry, no laceration, no petechiae, no rashes or lesions. <Jimi Morales, DO - Last Filed: 01/27/24 16:38> Initial Vital Signs Initial Vital Signs: Vital Signs Pulse Rate 104 H 01/27/24 13:44 Respiratory Rate 28 H 01/27/24 13:44 Pulse Oximetry 99 01/27/24 13:44 Course <Lynn Garcia, DO - Last Filed: 02/03/24 09:49> Orders Ordered: Discontinued Medications Diphenhydramine HCl (Diphenhydramine 50 Mg/Ml Vial) 50 mg IV NOW ONE Stop: 01/27/24 13:47 Last Admin: 01/27/24 13:50 Dose: 50 mg Documented By: SB Epinephrine HCl (Epinephrine 1 Mg/Ml) 0.5 mg IM NOW ONE Stop: 01/27/24 13:47 Last Admin: 01/27/24 13:44 Dose: 0.5 mg Documented By: SB Famotidine (Famotidine 20 Mg/2 Ml Vial) 20 mg IV NOW CINDA Last Admin: 01/27/24 13:51 Dose: 20 mg Documented By: SB Methylprednisolone (Methylprednisolone 125 Mg/2 Ml Vial) 125 mg IV NOW ONE Stop: 01/27/24 13:47 Last Admin: 01/27/24 13:53 Dose: 125 mg Documented By: SB Vital Signs Vital signs: Vital Signs - 8 hr 01/27/24 13:44 01/27/24 13:54 01/27/24 13:54 Temperature Pulse Rate 104 H 81 Respiratory Rate 28 H 26 H Blood Pressure 139/81 Pulse Oximetry 99 100 Oxygen Delivery Method 01/27/24 13:55 01/27/24 13:55 01/27/24 14:00 Temperature Pulse Rate 83 79 Respiratory Rate 24 20 Blood Pressure 139/84 Pulse Oximetry 100 100 Oxygen Delivery Method 01/27/24 14:00 01/27/24 14:01 01/27/24 14:05 Temperature 98.5 F Pulse Rate 79 Respiratory Rate 20 Blood Pressure 140/83 177/90 H 149/89 H Pulse Oximetry 99 Oxygen Delivery Method Room Air 01/27/24 14:05 01/27/24 14:10 01/27/24 14:10 Temperature Pulse Rate 86 87 Respiratory Rate 23 23 Blood Pressure 152/85 H Pulse Oximetry 100 100 Oxygen Delivery Method 01/27/24 14:15 01/27/24 14:15 01/27/24 14:20 Temperature Pulse Rate 83 Respiratory Rate 21 Blood Pressure 144/76 H 141/63 H Pulse Oximetry 99 Oxygen Delivery Method 01/27/24 14:20 01/27/24 14:25 01/27/24 14:25 Temperature Pulse Rate 94 H 85 Respiratory Rate 26 H 23 Blood Pressure 149/72 H Pulse Oximetry 97 95 Oxygen Delivery Method 01/27/24 14:30 01/27/24 14:30 01/27/24 14:35 Temperature Pulse Rate 91 H Respiratory Rate 28 H Blood Pressure 150/77 H 142/65 H Pulse Oximetry 95 Oxygen Delivery Method 01/27/24 14:35 01/27/24 14:40 01/27/24 14:40 Temperature Pulse Rate 88 87 Respiratory Rate 21 20 Blood Pressure 147/65 H Pulse Oximetry 95 96 Oxygen Delivery Method 01/27/24 14:45 01/27/24 14:45 01/27/24 14:50 Temperature Pulse Rate 90 Respiratory Rate 22 Blood Pressure 154/66 H 152/70 H Pulse Oximetry 96 Oxygen Delivery Method 01/27/24 14:50 01/27/24 14:55 01/27/24 14:55 Temperature Pulse Rate 84 87 Respiratory Rate 21 22 Blood Pressure 157/74 H Pulse Oximetry 96 96 Oxygen Delivery Method 01/27/24 15:00 01/27/24 15:00 01/27/24 15:06 Temperature Pulse Rate 85 Respiratory Rate 21 Blood Pressure 152/70 H 152/67 H Pulse Oximetry 96 Oxygen Delivery Method 01/27/24 15:06 01/27/24 15:10 01/27/24 15:10 Temperature Pulse Rate 85 82 Respiratory Rate 23 24 Blood Pressure 159/72 H Pulse Oximetry 96 95 Oxygen Delivery Method 01/27/24 15:15 01/27/24 15:15 01/27/24 15:20 Temperature Pulse Rate 84 Respiratory Rate 22 Blood Pressure 161/75 H 171/79 H Pulse Oximetry 96 Oxygen Delivery Method 01/27/24 15:20 01/27/24 15:25 01/27/24 15:25 Temperature Pulse Rate 83 84 Respiratory Rate 20 24 Blood Pressure 148/71 H Pulse Oximetry 95 94 Oxygen Delivery Method 01/27/24 15:30 01/27/24 15:30 Temperature Pulse Rate 88 Respiratory Rate 23 Blood Pressure 142/65 H Pulse Oximetry 95 Oxygen Delivery Method <Jimi Morales, DO - Last Filed: 01/27/24 16:38> Orders Ordered: Discontinued Medications Diphenhydramine HCl (Diphenhydramine 50 Mg/Ml Vial) 50 mg IV NOW ONE Stop: 01/27/24 13:47 Last Admin: 01/27/24 13:50 Dose: 50 mg Documented By: KAITLYNN Epinephrine HCl (Epinephrine 1 Mg/Ml) 0.5 mg IM NOW ONE Stop: 01/27/24 13:47 Last Admin: 01/27/24 13:44 Dose: 0.5 mg Documented By: SB Famotidine (Famotidine 20 Mg/2 Ml Vial) 20 mg IV NOW CINDA Last Admin: 01/27/24 13:51 Dose: 20 mg Documented By: KAITLYNN Methylprednisolone (Methylprednisolone 125 Mg/2 Ml Vial) 125 mg IV NOW ONE Stop: 01/27/24 13:47 Last Admin: 01/27/24 13:53 Dose: 125 mg Documented By: KAITLYNN Vital Signs Vital signs: Vital Signs - 8 hr 01/27/24 13:44 01/27/24 13:54 01/27/24 13:54 Temperature Pulse Rate 104 H 81 Respiratory Rate 28 H 26 H Blood Pressure 139/81 Pulse Oximetry 99 100 Oxygen Delivery Method 01/27/24 13:55 01/27/24 13:55 01/27/24 14:00 Temperature Pulse Rate 83 79 Respiratory Rate 24 20 Blood Pressure 139/84 Pulse Oximetry 100 100 Oxygen Delivery Method 01/27/24 14:00 01/27/24 14:01 01/27/24 14:05 Temperature 98.5 F Pulse Rate 79 Respiratory Rate 20 Blood Pressure 140/83 177/90 H 149/89 H Pulse Oximetry 99 Oxygen Delivery Method Room Air 01/27/24 14:05 01/27/24 14:10 01/27/24 14:10 Temperature Pulse Rate 86 87 Respiratory Rate 23 23 Blood Pressure 152/85 H Pulse Oximetry 100 100 Oxygen Delivery Method 01/27/24 14:15 01/27/24 14:15 01/27/24 14:20 Temperature Pulse Rate 83 Respiratory Rate 21 Blood Pressure 144/76 H 141/63 H Pulse Oximetry 99 Oxygen Delivery Method 01/27/24 14:20 01/27/24 14:25 01/27/24 14:25 Temperature Pulse Rate 94 H 85 Respiratory Rate 26 H 23 Blood Pressure 149/72 H Pulse Oximetry 97 95 Oxygen Delivery Method 01/27/24 14:30 01/27/24 14:30 01/27/24 14:35 Temperature Pulse Rate 91 H Respiratory Rate 28 H Blood Pressure 150/77 H 142/65 H Pulse Oximetry 95 Oxygen Delivery Method 01/27/24 14:35 01/27/24 14:40 01/27/24 14:40 Temperature Pulse Rate 88 87 Respiratory Rate 21 20 Blood Pressure 147/65 H Pulse Oximetry 95 96 Oxygen Delivery Method 01/27/24 14:45 01/27/24 14:45 01/27/24 14:50 Temperature Pulse Rate 90 Respiratory Rate 22 Blood Pressure 154/66 H 152/70 H Pulse Oximetry 96 Oxygen Delivery Method 01/27/24 14:50 01/27/24 14:55 01/27/24 14:55 Temperature Pulse Rate 84 87 Respiratory Rate 21 22 Blood Pressure 157/74 H Pulse Oximetry 96 96 Oxygen Delivery Method 01/27/24 15:00 01/27/24 15:00 01/27/24 15:06 Temperature Pulse Rate 85 Respiratory Rate 21 Blood Pressure 152/70 H 152/67 H Pulse Oximetry 96 Oxygen Delivery Method 01/27/24 15:06 01/27/24 15:10 01/27/24 15:10 Temperature Pulse Rate 85 82 Respiratory Rate 23 24 Blood Pressure 159/72 H Pulse Oximetry 96 95 Oxygen Delivery Method 01/27/24 15:15 01/27/24 15:15 01/27/24 15:20 Temperature Pulse Rate 84 Respiratory Rate 22 Blood Pressure 161/75 H 171/79 H Pulse Oximetry 96 Oxygen Delivery Method 01/27/24 15:20 01/27/24 15:25 01/27/24 15:25 Temperature Pulse Rate 83 84 Respiratory Rate 20 24 Blood Pressure 148/71 H Pulse Oximetry 95 94 Oxygen Delivery Method 01/27/24 15:30 01/27/24 15:30 Temperature Pulse Rate 88 Respiratory Rate 23 Blood Pressure 142/65 H Pulse Oximetry 95 Oxygen Delivery Method MDM - Allergic Reaction <Lynn Garcia, DO - Last Filed: 02/03/24 09:49> [facility] Narrative Medical decision making narrative: Patient 48-year-old female with no history of anaphylaxis presenting today with anaphylactic like symptoms after shellfish. She has hives and angioedema. She was treated with epinephrine Benadryl Solu-Medrol and Protonix. Upon reexamination she is doing much better able to talk hives are improving. Patient signed out to Dr. Morales <Jimi Morales, DO - Last Filed: 01/27/24 16:38> Differential Diagnosis Differential diagnosis: Likely allergic reaction, other and urticaria Condition is:: Improved Medical Records Attestation: I reviewed the patient's medical records. Lab Data Attestation: I reviewed the patient's lab results. [facility] Narrative Medical decision making narrative: Patient 48-year-old female with no history of anaphylaxis presenting today with anaphylactic like symptoms after shellfish. She has hives and angioedema. She was treated with epinephrine Benadryl Solu-Medrol and Protonix. Upon reexamination she is doing much better able to talk hives are improving. Patient signed out to Dr. Morales patient was watched here in the emergency department for several hours after administration of IV Benadryl, steroids, IM epi, patient with significant amount of improvement in urticarial rash as well as itchiness of the throat. Patient is speaking in full sentences protecting airway. Strict return precautions were given verbalized understanding of this and agrees with being discharged home with outpatient follow-up Discharge Plan Departure Patient Disposition: Home Clinical Impression: Allergic reaction Qualifiers: Encounter type: initial encounter Qualified Code(s): T78.40XA - Allergy, unspecified, initial encounter Activity Restrictions/Additional Instructions: patient was instructed to follow up with primary care as well as pocket maker for continued evaluation and treatment of symptoms, strict return precautions were given verbalized understanding and agrees with being discharged home. Please read the discharge instructions sheet carefully and bring all papers to all doctor follow-up visits, as it may contain information that your doctor may want to see. Disease processes change and evolve, if your symptoms worsen or if you develop any new symptoms that are concerning to you please return for evaluation. Your evaluation today does not show any evidence of any life- threatening/serious illnesses requiring admission to the hospital or surgery. Please follow-up with your doctor for re-evaluation in approximately 1 day. Seek immediate medical attention for any worrisome symptoms. Prescriptions: New prednisone 20 mg tablet 40 mg PO DAILY Qty: 10 0RF famotidine [Acid Scaffold Worker (famotidine)] 20 mg tablet 20 mg PO DAILY Qty: 3 0RF epinephrine [EpiPen 2-Finn] 0.3 mg/0.3 mL auto-injector 0.3 mg IM Q4H PRN (Reason: anaphylaxis) Qty: 2 1RF No Action etodolac 400 mg tablet 400 mg PO Q12H PRN lorazepam [Ativan] 1 MG tablet 1 mg PO PRN PRN (Reason: Anxiety) Qty: 0 sertraline [Zoloft] 50 mg tablet 100 mg PO BID Referrals: Magdiel Ware MD [Primary Care Provider] - Stand Alone Forms: Patient Portal/API
[2024-01-27] MEDS: diphenhydrAMINE 50 MG/ML VIAL IV (13:50)
[2024-01-27] MEDS: FAMOTIDINE 20 MG/2 ML VIAL IV (13:51)
[2024-01-27] MEDS: methylPREDNISolone 125 MG/2 ML VIAL IV (13:53)
--- NOTE | 2024-01-27 14:06 | PC.NURSE ---
This RN is triage nurse and responded to patient at register desk and immediately took patient to room six and asked fellow nurse to immediately pull allergic reaction kit. Dr. Garcia immediately at patient bedside. Brittany secured allergic reaction kit and gave EPI per Dr. Garcia verbal order. This RN placed two IV one in right AC and one in right hand and administered remaining verbal order medications Dr. Garcia gave.
== END 2024-01-27 15:39 | disposition home or self-care (01) ==
PROVIDERS: Emergency Provider Student in an Organized Health Care Education/Training Program; PCP Family Medicine
DX: T78.3XXA Angioneurotic edema, initial encounter (principal); T78.40XA Allergy, unspecified, initial encounter
CPT/HCPCS: 36415; 96372; 96374; 96375; 99284; J0171; J1200; J2919

== ENCOUNTER → 2024-04-25 13:34 | Outpatient (CLI) | payer OTHER, SELFPAY ==
[2022-08-18 10:52] VITALS: BMI 40.7
--- NOTE | 2024-04-25 | DI.MG.S_ITS ---
BILATERAL DIGITAL DIAGNOSTIC MAMMOGRAM 3D/2D SHORT-TERM FOLLOW-UP: 04/25/2024 CLINICAL: Short term follow up of the right breast, Post Biopsy due for bilateral imaging. Comparison is made to exams dated: 08/24/2023 mammogram - [facility] and 03/29/2023 mammogram - [facility]. The breasts are heterogeneously dense, which may obscure small masses (category c / 51-75% glandular tissue). The patient is status post benign and concordant biopsy of right breast mass at 12 o'clock middle depth. No other significant masses, calcifications, or other findings are seen in either breast. IMPRESSION: INCOMPLETE: NEED ADDITIONAL IMAGING EVALUATION Status post benign and concordant biopsy of right breast 12 o'clock mass. An ultrasound is recommended for further evaluation and is scheduled to immediately follow this examination. Based on Tyrer-Cuzick model (a risk assessment model), the patient's lifetime risk is 36.1% and her 10 year risk is 9.2%. If a patient has an elevated risk, a more comprehensive evaluation should be considered and/or a referral to a genetic counselor. The [place] [employer], [place] [employer], and NCCN Guidelines advise the consideration of Breast MRI as an adjunct to screening mammography in patients whose Lifetime risk to develop breast cancer is 20% or higher. This exam was interpreted at Station ID: [id number]. NOTE: For mammograms, a report in lay terms will be sent to the patient. Approximately 15% of breast malignancies will not be visualized mammographically. In the management of a palpable breast mass, a negative mammogram must not discourage biopsy of a clinically suspicious lesion. Electronically Signed By: Angella Stallworth M.D., Ph.D. eb/:04/25/2024 16:17:10 letter sent: Additional Imaging Needed ACR BI-RADS Category 0: Incomplete: Need Additional Imaging Evaluation
--- NOTE | 2024-04-25 14:30 | DI.US.S_ITS ---
LIMITED ULTRASOUND OF RIGHT BREAST: 04/25/2024 CLINICAL: 6 month follow up right breast biopsy site. Comparison is made to exams dated: 04/25/2024 mammogram, 09/11/2023 ultrasound biopsy, 09/11/2023 mammogram - [facility], 08/24/2023 ultrasound, 08/24/2023 mammogram - [facility], and 03/29/2023 mammogram - [facility]. Color flow and real-time ultrasound of the right breast 12 o'clock region were performed. Jeter scale images of the real-time examination were reviewed. There is redemonstration of an oval hypoechoic mass at 12 o'clock, 5 cm from the nipple measuring 2.6 x 2.1 x 1.8 cm corresponding to previously benign biopsy mass with vision clip seen within the mass. Previously the mass measured 3.9 x 1.3 x 2.2 cm on 08/24/2023. IMPRESSION: BENIGN Right breast 2.6 cm oval mass at 12 o'clock position status post benign and concordant biopsy, decreased in size since pre biopsy ultrasound likely due to combination of differences in measurement technique and post biopsy changes. No sonographic or mammographic evidence of malignancy. A 1 year screening mammogram is recommended. Findings and recommendations were conveyed to the patient during today's evaluation. This exam was interpreted at Station ID: [id number]. Electronically Signed By: Angella Stallworth M.D., Ph.D. eb/:04/25/2024 16:24:03 letter sent: Normal Exam ACR BI-RADS Category 2: Benign
== END ==
PROVIDERS: PCP Family Medicine; Referring Provider Surgery; Visit Provider Surgery
DX: R92.2 Inconclusive mammogram (principal); D24.1 Benign neoplasm of right breast; N60.99 Unspecified benign mammary dysplasia of unspecified breast; R92.333 Mammographic heterogeneous density, bilateral breasts
CPT/HCPCS: 76642; 77066; G0279

== ENCOUNTER → 2024-08-05 07:05 | Outpatient (CLI) | payer OTHER, SELFPAY ==
[2022-08-18 10:52] VITALS: BMI 40.7
--- NOTE | 2024-08-05 07:06 | DI.US.S_ITS ---
PROCEDURE: US PELVIC COMPLETE INDICATIONS: RIGHT OVARIAN CYST TECHNIQUE: Real-time scanning was performed of the pelvic organs, with image documentation. Additional endovaginal scanning was necessary due to incomplete visualization of the adnexal and endometrial structures by transabdominal scanning. COMPARISON: [facility], CT, CT ABDOMEN PELVIS WITH CONTRAST, 06/17/2024, 20:28. [facility], US, US PELVIC COMPLETE, 04/03/2022, 14:28. FINDINGS: Uterus: Surgically absent. Mild anechoic fluid within the cervix. Ovaries: The right ovary measures 3.1 x 1.7 x 2.0 cm, with a calculated ovarian volume of 5.6 cc. Likely hemorrhagic cyst within the right ovary measuring 1.7 x 1.8 x 1.0 cm. The left ovary measures 2.5 x 2.2 x 1.7 cm, with a calculated ovarian volume of 4.8 cc left ovary is grossly within normal limits.. Less than 12 follicles can be seen in each ovary. No adnexal masses are seen. Other: No pathologic free abdominal or pelvic fluid. IMPRESSION: Likely hemorrhagic cyst within the right ovary measuring 1.8 cm. Uterus is surgically absent. Mild anechoic fluid is noted within the cervix of uncertain etiology or clinical significance. We strive to produce accurate, complete, and clear reports of imaging services. To assist us in improving patient care, this report was composed using standard report templates and voice recognition software. Therefore, it may contain abnormal punctuation, insertions and/or omissions. Occasional wrong-word or sound-alike substitutions may occur. Though we review the report and make efforts to correct it, we do recommend that the report be read carefully in proper context to recognize any text inaccuracies. Dictated by: Dameon Dan M.D. on 08/05/2024 at 9:48 Approved by: Dameon Dan M.D. on 08/05/2024 at 9:55
== END ==
PROVIDERS: PCP Family Medicine; Referring Provider Family Medicine; Visit Provider Family Medicine
DX: N83.201 Unspecified ovarian cyst, right side (principal); Z90.710 Acquired absence of both cervix and uterus
CPT/HCPCS: 76830; 76856

== ENCOUNTER 2024-11-04 09:51 | Emergency (ER) | payer OTHER, SELFPAY ==
[2022-08-18 10:52] VITALS: BMI 40.7
[2024-11-04 09:52] VITALS: BP 172/90; PULSE 85; RESP 13; TEMP 36.3; O2SAT 96; BMI 40.7
[2024-11-04 09:56] VITALS: PULSE 85; O2SAT 99
[2024-11-04 09:57] VITALS: BP 172/90; PULSE 85; O2SAT 99
[2024-11-04 10:00] VITALS: BP 158/87; PULSE 83; O2SAT 100
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
--- NOTE | 2024-11-04 10:29 | DI.CT.S_ITS ---
PROCEDURE: CT ANGIO HEAD AND NECK INDICATIONS: Blurry vision right upper extremity weakness and tingling TECHNIQUE: After the administration of intravenous contrast, 1 mm thick sections acquired from the aortic arch through the [place] of [place]. 3-dimensional zdgnoqc-nsfgsuyll-ltetkufdir (MIP) and/or volume rendering reformats were acquired of the central intracranial vasculature and neck separately. For radiation dose reduction, the following was used: automated exposure control, adjustment of mA and/or kV according to patient size. COMPARISON: [facility], CT, CT HEAD/BRAIN WO CON, 11/04/2024, 10:56. FINDINGS: Image quality: Diagnostic. BRAIN: See separately dictated CT brain report of 11/04/2024 for [address] details. HEAD CT ANGIOGRAPHY: Anterior circulation: Intracranial internal carotid arteries are normal in size and flow. The flow within the paired anterior cerebral arteries is normal and symmetric. The flow within the middle cerebral arteries is normal and symmetric. The anterior communicating artery is seen. No aneurysms are seen. Posterior circulation: Visualized portions of the vertebral arteries demonstrate normal caliber, and join to form a normal appearing basilar artery. Flow within the posterior cerebral arteries is normal and symmetric. No aneurysms are seen. NECK CT ANGIOGRAPHY: Carotid system: The great vessels demonstrate a conventional anatomy as they arise from the aortic arch. The origins of the common carotid arteries appear patent. The common carotid arteries demonstrate normal caliber and courses. The bifurcation regions are both widely patent. The internal carotid arteries demonstrate normal calibers and courses. Posterior circulation: The origins of the vertebral arteries both appear widely patent. The more superior extracranial portions of both vertebral arteries also demonstrate normal courses and calibers. They join to form a normal appearing basilar artery. Soft tissues: Visualized neck soft tissues demonstrate no suspicious abnormalities. Bones: No suspicious bony lesions. Visualized cervical spine appears normally aligned. IMPRESSION: No significant intracranial arterial abnormality is seen. No significant abnormality is seen within the arteries of the neck. Any quantitative measurements of stenosis were performed using NASCET criteria. Dictated by: Aleshia Helton M.D. on 11/04/2024 at 11:16 Approved by: Aleshia Helton M.D. on 11/04/2024 at 11:17
[2024-11-04 10:30] VITALS: PULSE 78; O2SAT 99
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
[2024-11-04 10:31] VITALS: BP 166/79; PULSE 78; O2SAT 100
[2024-11-04 10:48] LABS: Add Manual Diff / Slide Review NO; Basophils Absolute Auto 0 /uL (0-100); Basophils Percent Auto 0.6 % (0-2); Eosinophils Absolute Auto 100 /uL (0-450); Eosinophils Percent Auto 1.4 % (2-4); Hematocrit 39.7 % (36-46); Hemoglobin 13.3 g/dL (12.0-16.0); Lymphocytes Absolute Auto 1600 /uL (1100-4500); Lymphocytes Percent Auto 24.5 % (25-40); Mean Corpuscular HGB Conc 33.6 % (30-36); Mean Corpuscular Hemoglobin 29.2 PG (26-34); Monocytes Absolute Auto 700 /uL (0-900); Monocytes Percent Auto 10.4 % (3-14); Neutrophils Absolute Auto 4100 /uL (1500-7000); Neutrophils Percent Auto 63.1 % (50-75); Platelet Count 300 X10^3/uL (150-400); Red Blood Cell Count 4.56 X10^6/uL (4.0-5.2); Red Cell Distribution Width 14.2 % (11.6-14.8); White Blood Cell Count 6.4 X10^3/uL (4.5-11.0)
[2024-11-04] MEDS: KETOROLAC 30 MG/ML VIAL 15 MG IV (10:53)
[2024-11-04] MEDS: SODIUM CHLORIDE 0.9% 1,000 ML 1000 ML IV (10:53)
[2024-11-04] MEDS: methylPREDNISolone 125 MG/2 ML VIAL IV (10:53)
[2024-11-04 11:01] LABS: BUN Creatinine Ratio 16.4 (6-22); Blood Urea Nitrogen 12 mg/dL (7-17); Calcium 9.4 mg/dL (8.4-10.2); Carbon Dioxide 26 mmol/L (22-32); Chloride 102 mmol/L (98-107); Estimated Glomerular Filt Rate > 60 mL/min (>60); Glucose 89 mg/dL (70-99); HEMOLYSIS < 15 (0-50); Potassium 4.1 mmol/L (3.4-5.1); Sodium 137 mmol/L (137-145)
== END 2024-11-04 12:05 | disposition home or self-care (01) ==
PROVIDERS: Emergency Provider Emergency Medicine; PCP Family Medicine
DX: M54.12 Radiculopathy, cervical region (principal); S16.1XXA Strain of muscle, fascia and tendon at neck level, initial encounter; R51.9 Headache, unspecified; H53.8 Other visual disturbances; R53.1 Weakness; V89.2XXA Person injured in unspecified motor-vehicle accident, traffic, initial encounter
CPT/HCPCS: 70450; 70496; 70498; 72040; 80048; 85025; 96361; 96374; 96375; 99284; J1885; J2919; Q9967

== ENCOUNTER → 2024-11-21 16:19 | Outpatient (CLI) | payer OTHER, SELFPAY ==
[2022-08-18 10:52] VITALS: BMI 40.7
--- NOTE | 2024-11-21 16:20 | DI.MRI.S_ITS ---
PROCEDURE: MR CERVICAL SPINE WO CON INDICATIONS: cervical radiculopathy TECHNIQUE: Noncontrast sagittal T1 spin echo and T2 fast spin echo, sagittal STIR, foraminal oblique sagittal T2 fast spin echo, and axial gradient echo or T2 fast spin echo through the cervical spine. COMPARISON: [facility], CR, XR CERVICAL SPINE 2V OR 3V, 11/04/2024, 10:38. FINDINGS: Image quality: Excellent. Alignment and Curvature: There is loss of normal cervical lordosis. Bone Marrow: Marrow demonstrates normal overall signal. Mild reactive signal throughout the endplates of the cervical spine. Spinal Cord: Visualized spinal cord has normal size and signal. No cerebellar tonsillar herniation. Paraspinous Soft Tissues: No paravertebral masses. Prevertebral soft tissues are normal in thickness. C2-C3: Moderate disc desiccation. Mild diffuse disc bulge. Mild canal stenosis. Mild bilateral foraminal stenosis. C3-C4: Moderate disc desiccation. Mild diffuse disc bulge. Mild facet and uncovertebral hypertrophy. Moderate canal stenosis. Mild right and moderate left foraminal stenosis. C4-C5: Moderate disc desiccation. Mild disc height loss and diffuse disc bulge with superimposed right paracentral and left far lateral protrusions. Mild facet and uncovertebral hypertrophy. Moderate to severe canal stenosis. Minimal right cord flattening. Severe left and moderate right foraminal stenosis. Left C5 nerve root compression. C5-C6: Moderate disc desiccation. Mild disc height loss and diffuse disc bulge with superimposed right paracentral protrusion. Mild facet and uncovertebral hypertrophy bilaterally. Moderate to severe canal stenosis. Mild right cord flattening. Moderate left and mild right foraminal stenosis. C6-C7: Moderate disc desiccation. Moderate diffuse disc bulge with superimposed left posterolateral protrusion. Mild facet and uncovertebral hypertrophy bilaterally. Moderate canal stenosis. Moderate to severe left and mild right foraminal stenosis. Mild left C7 nerve root compression. C7-T1: Moderate disc desiccation. Mild diffuse disc bulge. Mild facet and uncovertebral hypertrophy. Mild canal stenosis. Mild bilateral foraminal stenosis. IMPRESSION: 1. Multilevel degenerative disc and facet disease, as well as uncovertebral hypertrophy. 2. Multilevel canal stenoses, worst at C4-C5 and C5-C6 where there is mild cord flattening. 3. Multilevel foraminal stenoses, worst at C4-C5 and C6-C7 where there is associated intraforaminal nerve root compression. Recommend correlation with clinical symptoms to ascertain relevance of these findings. Dictated by: Rebeca Hall M.D. on 11/24/2024 at 13:24 Approved by: Rebeca Hall M.D. on 11/24/2024 at 13:28
== END ==
PROVIDERS: PCP Family Medicine; Referring Provider Family Medicine; Visit Provider Family Medicine
DX: M54.12 Radiculopathy, cervical region (principal); M50.30 Other cervical disc degeneration, unspecified cervical region; M48.02 Spinal stenosis, cervical region; M47.812 Spondylosis without myelopathy or radiculopathy, cervical region
CPT/HCPCS: 72141

== ENCOUNTER → 2025-03-16 14:19 | Outpatient (CLI) | payer OTHER, SELFPAY ==
[2022-08-18 10:52] VITALS: BMI 40.7
--- NOTE | 2025-03-16 14:28 | DI.RAD.S_ITS ---
PROCEDURE: XR ANKLE LT MIN 3V INDICATIONS: BACK AND RT KNEE PAIN TECHNIQUE: 3 views of the ankle were acquired. COMPARISON: [facility], CR, XR ANKLE RT MIN 3V, 07/16/2019, 11:36. FINDINGS: Bones: No fractures or dislocations. Ankle mortise is normally aligned. No suspicious bony lesions. Soft tissues: No tibiotalar joint effusion. Achilles tendon appears normal. IMPRESSION: No acute bony abnormality or significant effusion. Dictated by: Sunday Hankins M.D. on 03/16/2025 at 15:58 Approved by: Sunday Hankins M.D. on 03/16/2025 at 15:59
--- NOTE | 2025-03-16 14:28 | DI.RAD.S_ITS ---
PROCEDURE: XR LUMBAR SPINE MIN 4V INDICATIONS: BACK AND RT KNEE PAIN TECHNIQUE: 5 views of the lumbar spine were acquired, including bilateral oblique views. COMPARISON: None. FINDINGS: Bones: 5 nonrib-bearing vertebrae are present. There is normal bony alignment. No vertebral body compression fractures. No suspicious bony lesions. Mild disc space narrowing at L4-5. Soft tissues: Overlying bowel gas pattern is normal. No suspicious soft tissue calcifications. Oblique images: No pars defects. IMPRESSION: No acute bony abnormality. Mild spondylosis at L4-5. Dictated by: Sunday Hankins M.D. on 03/16/2025 at 15:59 Approved by: Sunday Hankins M.D. on 03/16/2025 at 16:00
--- NOTE | 2025-03-16 14:28 | DI.RAD.S_ITS ---
PROCEDURE: XR KNEE RT 3V INDICATIONS: BACK AND RT KNEE PAIN (WB) TECHNIQUE: 3 views of the knee were acquired. COMPARISON: None. FINDINGS: Bones: No fractures or dislocations. No suspicious bony lesions. Soft tissues: Small joint effusion. No suspicious soft tissue calcifications. IMPRESSION: Small knee joint effusion without acute osseous abnormality. Dictated by: Sunday Hankins M.D. on 03/16/2025 at 15:57 Approved by: Sunday Hankins M.D. on 03/16/2025 at 15:58
== END ==
PROVIDERS: PCP Family Medicine; Referring Provider Family Medicine; Visit Provider Family Medicine
DX: M47.816 Spondylosis without myelopathy or radiculopathy, lumbar region (principal); M25.561 Pain in right knee; M25.461 Effusion, right knee; M54.50 Low back pain, unspecified; G89.29 Other chronic pain
CPT/HCPCS: 72110; 73562; 73610

== ENCOUNTER → 2025-03-19 07:52 | Outpatient (CLI) | payer OTHER, SELFPAY ==
[2022-08-18 10:52] VITALS: BMI 40.7
--- NOTE | 2025-03-19 07:53 | DI.MRI.S_ITS ---
MR breast BI wo/w con: 03/19/2025. BI-RADS: 4 CLINICAL: 49-year old female for bilateral diagnostic breast MRI. High-Risk Screening MRI. No personal or first-degree family history of breast cancer. Current reported family history of breast cancer: maternal aunt, second maternal aunt and daughter of uncle. PRIOR EXAMS 04/25/2024, 09/11/2023, 08/24/2023, 03/29/2023. MRI TECHNIQUE Bilateral breast MRI was performed on a 1.5 Christelle magnet using a dedicated breast coil with mild compression. Axial T1 and T2 STIR sequences were obtained. Dynamic contrast enhanced VIBRANT fat-suppressed sequences were obtained. Delayed sagittal high resolution or sagittal reconstructed isotropic sequence was also obtained. Subtraction images and maximum intensity projection images were obtained. The study was evaluated using Quick2LAUNCH software. Gadolinium based contrast was injected intravenously. FIBROGLANDULAR TISSUE Bilateral: C. Heterogeneous fibroglandular tissue. BACKGROUND PARENCHYMAL ENHANCEMENT Bilateral: Mild symmetrical background parenchymal enhancement. BREAST FINDINGS Right: Central, (Sagittal S:12/I:94), (Axial S:6/I:81), Middle depth, measuring 4.2 x 1.8 x 2.6cm: A biopsy microclip is seen at the anterior margin of the non- enhancing portion of this mass. There is an irregularly shaped, heterogeneously enhancing mass with irregular margins. Kinetic enhancement curve shows fast initial phase and washout pattern on delayed phase. On non-contrast sequences this mass shows intermediate signal intensity on STIR/T2-weighted sequences. There are no abnormal axillary or internal mammary lymph nodes. Left: There is no suspicious mass or non-mass enhancement. There are no abnormal axillary or internal mammary lymph nodes. IMPRESSION: Right (Mass): Central, (Sagittal S:12/I:94), (Axial S:6/I:81), Middle depth, measuring 4.2 x 1.8 x 2.6cm * Suspicious findings with likelihood of malignancy. Left * No evidence of malignancy. RECOMMENDATIONS Right: Central, Middle depth * Further evaluation with diagnostic mammography and diagnostic ultrasound (If a mammographic or sonographic correlate is identified, then tissue diagnosis is recommended with biopsy of the portion of the mass that was not previously targeted. If no mammographic or sonographic correlate, then an MRI guided biopsy is recommended. Alternatively, surgical excision may be pursued in lieu of image guided biopsy). Left * Annual screening mammography. COMMENTS: The imaging literature indicates that a negative contrast breast MRI examination has a high sensitivity and a moderate specificity for detecting and excluding invasive carcinomas to a detection threshold of 3-5 mm; nonetheless, appropriate clinical and mammographic follow-up are recommended. MRI is not sensitive for detecting DCIS (ductal carcinoma in situ) and may not detect large invasive neoplasms that show only minimal enhancement such as mucinous carcinoma. If there are suspicious calcifications or clinically worrisome palpable masses, then biopsy should still be considered. Invasive neoplasms can be hidden by co-existent and benign enhancement caused by mastitis, hormone therapy effects, radiation therapy, , and recent biopsy or surgery. False positive examinations can occur in a number of circumstances, including breasts that have recently been subject to invasive procedures and those that contain atypical ductal hyperplasia, hormonally stimulated glandular tissue, fat necrosis, or radial scars. OVERALL ASSESSMENT CATEGORY BI-RADS-4: Suspicious. ELECTRONICALLY SIGNED: Gaby Hoff M.D. on 03/22/2025 at 08:24:53 PM PT Interpreting Station ID: [id number]
== END ==
LOC: MRI 07:53
PROVIDERS: PCP Family Medicine; Referring Provider Family Medicine; Visit Provider Family Medicine
DX: R92.8 Other abnormal and inconclusive findings on diagnostic imaging of breast (principal); N63.15 Unspecified lump in the right breast, overlapping quadrants; R92.30 Dense breasts, unspecified; Z91.89 Other specified personal risk factors, not elsewhere classified; Z80.3 Family history of malignant neoplasm of breast
CPT/HCPCS: 77049; A9579